=== PATIENT | female | born 1965 | race Caucasian/White ===

== ENCOUNTER 2019-02-10 05:23 | Day surgery (SDC) ==
[2019-02-10] MEDS ORDERED: LEVAQUIN 750 MG/D5W 750 MG/150 ML IVPB IV ONE (06:00)
[2019-02-10] MEDS ORDERED: PEPCID ONE (06:02)
[2019-02-10] MEDS ORDERED: REGLAN ONE (06:02)
[2019-02-10] MEDS ORDERED: LR 1,000 ML ONE ×2 (06:02→10:16)
[2019-02-10] MEDS ORDERED: SENSORCAINE-MPF 0.5%/EPI 1:200,000 ONE (06:17)
[2019-02-10] MEDS ORDERED: XYLOCAINE 1% ONE (06:17)
[2019-02-10] MEDS ORDERED: DIPRIVAN 1% ONE (06:23)
[2019-02-10] MEDS ORDERED: FENTANYL ONE ×2 (06:23→07:40)
[2019-02-10] MEDS ORDERED: XYLOCAINE-MPF 2% ONE (06:24)
[2019-02-10] MEDS ORDERED: ZEMURON ONE (06:26)
[2019-02-10] MEDS ORDERED: VERSED ONE (06:49)
[2019-02-10] MEDS ORDERED: DECADRON ONE (07:26)
[2019-02-10] MEDS ORDERED: EPHEDRINE ONE (07:26)
[2019-02-10] MEDS ORDERED: OFIRMEV 1000 MG/ISOTONIC SOLN 1,000 MG/100 ML BOTTLE ONE (07:26)
[2019-02-10] MEDS ORDERED: ROBINUL ONE (08:14)
[2019-02-10] MEDS ORDERED: SODIUM CHLORIDE 0.9% 10 ML ONE (08:22)
[2019-02-10] MEDS ORDERED: NEO-SYNEPHRINE ONE (08:22)
[2019-02-10] MEDS ORDERED: DILAUDID ONE (10:16)
[2019-02-10] MEDS ORDERED: VENTOLIN HFA INH PRN (10:51)
[2019-02-10] MEDS: MORPHINE IV PRN ×2 (12:39→18:08)
[2019-02-10] MEDS: OSCAL 500 PO SCH ×2 (12:47→17:11)
[2019-02-10] MEDS: ZOFRAN IV PRN (15:48)
[2019-02-10] MEDS: LR 1,000 ML IV SCH ×2 (15:50→21:18)
[2019-02-10] MEDS: TYLENOL PO PRN (17:09)
[2019-02-10 17:36] LABS: AGAP 14; BUN 9 mg/dL (8-22); CHLORIDE 101 mmol/L (98-107); COSMO 275; CREATININE 0.8 mg/dL (0.5-0.9); ESTIMATED GFR > 60; GLUCOSE 152 mg/dL (70-104); MAGNESIUM 1.7 mg/dL (1.5-2.7); SODIUM 137 mmol/L (136-145); TCO2 22 mmol/L (25-35)
[2019-02-10] MEDS: MAG-OX PO SCH (21:19)
--- NOTE | 2019-02-10 23:42 | OPERATIVE NOTE ---
PROCEDURE DATE: 02/10/2019 PREOPERATIVE DIAGNOSES: 1. Left anterior cervical mass. 2. Multinodular goiter. 3. Primary hyperparathyroidism. POSTOPERATIVE DIAGNOSES: 1. Multinodular goiter with compressive symptoms. 2. Primary hyperparathyroidism related to a left inferior parathyroid adenoma. ESTIMATED BLOOD LOSS: 30 mL SPECIMENS: 1. Left lobe of the thyroid. 2. Right lobe of the thyroid. 3. Left inferior parathyroid gland. ANESTHESIA: General. SURGEON: Penny Bergeron MD DETAIL MANAGER: MD Dr. Joe Lucero was present. He facilitated exposure and identification of anatomy distorted by neoplastic processes. INDICATION: This is a 53-year-old female who presented to my clinic with a large anterior cervical mass measuring almost [address] scan. She had compressive symptoms. She was also noted to have primary hyperparathyroidism based off her biochemical workup. She had bilateral nodules in her thyroid gland. OPERATIVE FINDINGS: 1. There was a firm nodular thyroid bilaterally. There was a large mass extending into the superior mediastinum on the left side, anterior to the recurrent laryngeal nerve, with frozen section consistent with parathyroid adenoma. 2. Preoperative PTH was 148 and dropped to 18 post removal of the parathyroid gland. OPERATIVE NOTE: Risks, benefits and alternatives were discussed with the patient. She consented to the procedure, seen preoperatively. The surgical site was confirmed. She was taken to the operating room and placed in supine position. General anesthesia was induced without complication. Her neck was extended and prepped with Betadine including the upper chest and draped in the usual fashion. After time-out, we made a transverse incision 2 fingerbreadths below the level of the sternal notch in a natural skin crease. We carried this down through the platysma and created subplatysmal planes inferiorly and superiorly. We then divided the strap muscle along the midline, protecting the anterior jugular vein. We started on the left side, as this was felt to be the most problematic side, and dissected strap muscles off the thyroid gland. We did this all the way out to the carotid artery. We then carried our dissection superiorly and encircled the superior pole, and divided it with the LigaSure device. We then continued our dissection inferiorly, dividing the middle thyroid vein, protecting the recurrent laryngeal nerve and the esophagus. We dissected out the isthmus superiorly and inferiorly, and then mobilized the left lobe of the thyroid off of the recurrent laryngeal nerve, protecting it. All the while we could identify an inflammatory mass that was quite fibrotic more inferiorly and separate from the thyroid gland. We passed the thyroid gland off to gain better exposure. At this point, we began dissecting the mass out of the mediastinum. This portion was relatively easy, but it was directly on top of the recurrent laryngeal nerve. We were able to preserve this and remove the nodule in its entirety. It was sent for frozen section and found to be parathyroid tissue. Ten to 15 minutes after removal, we sent another rapid PTH and it had dropped to 18, and we felt we had treated her primary hyperparathyroidism. Given the bilateral nodules, we continued our dissection on the contralateral side, mobilizing the strap muscles off of the right lobe of the thyroid. We continued our dissection cephalad, encircling the superior pole, dividing with LigaSure device. Middle vein was divided with the LigaSure device and the inferior pole vessels were dissected out, again identifying the recurrent laryngeal nerve. We divided these and began mobilizing the gland out of its bed with anterior retraction. We left a very small portion of the thyroid gland over the nerve to protect this, but the gland was removed for the most part in its entirety and passed off. We noted hemostasis after Valsalva maneuver bilaterally. Both nerves were intact. We did identify parathyroid glands on the right. We did not see the left superior gland, but felt that this was contained within fibroadipose tissue along the trachea. The majority of our dissection was performed directly on the capsule of the gland to prevent any devascularization of the remaining parathyroids. After noting hemostasis, we placed a Ron drain bilaterally through a separate stab incision. We closed the strap muscles with 3-0 Vicryl. The platysma was closed with 3-0 Vicryl and the skin was closed running 4-0 Monocryl. Dermabond was applied. She was awoken. Her airway was patent, and she was transferred to recovery with no issues. cc: Penny Bergeron MD
[2019-02-11] MEDS: LR 1,000 ML IV SCH ×3 (03:19→14:17)
[2019-02-11] MEDS: MORPHINE IV PRN (03:34)
[2019-02-11] MEDS ORDERED: PRILOSEC PO SCH (07:00)
[2019-02-11] MEDS ORDERED: SYNTHROID PO SCH (07:00)
[2019-02-11 07:45] LABS: AGAP 12; BUN 8 mg/dL (8-22); CALCIUM 8.8 mg/dL (8.8-10.2); CHLORIDE 100 mmol/L (98-107); COSMO 274; CREATININE 0.8 mg/dL (0.5-0.9); ESTIMATED GFR > 60; GLUCOSE 100 mg/dL (70-104); MAGNESIUM 1.9 mg/dL (1.5-2.7); POTASSIUM 3.6 mmol/L (3.5-5.1); SODIUM 138 mmol/L (136-145); TCO2 26 mmol/L (25-35)
[2019-02-11] MEDS: MAG-OX PO SCH (09:04)
[2019-02-11] MEDS: OSCAL 500 PO SCH ×2 (09:04→12:59)
[2019-02-11] MEDS: ZOFRAN IV PRN ×2 (09:15→13:03)
[2019-02-11 11:29] VITALS: BP 113/71
[2019-02-11] MEDS: TYLENOL PO PRN (14:04)
--- NOTE | 2019-02-12 12:57 | DISCHARGE SUMMARY ---
ADMISSION DATE: 02/10/2019 DISCHARGE DATE: 02/11/2019 PREOPERATIVE DIAGNOSES: 1. Multinodular goiter. 2. Primary hyperparathyroidism. POSTOPERATIVE DIAGNOSES: 1. Multinodular goiter. 2. Primary hyperparathyroidism. PROCEDURES PERFORMED: Total thyroidectomy with parathyroidectomy. HISTORY OF PRESENT ILLNESS: This is a 53-year-old female who has had an acute increase in size of an anterior cervical mass. Her workup revealed primary hyperparathyroidism that did not localize and a left inferiorly-based anterior cervical mass extending to the superior mediastinum. HOSPITAL COURSE: Patient was seen on the day of her admission which was 02/10 for above procedure and was cleared by Anesthesia and taken toe operating room and did well. She is admitted postoperatively and her calcium level was checked on the evening of her admission and it was 9. Her voice remained normal with no stridor. Drain output was minimal and she is able to swallow without difficulty. She was started on supplemental calcium 1000 mg t.i.d. as well as Synthroid this morning. On the following morning, calcium remained relatively stable at 8.8. She was feeling well. Drain was removed. She was felt safe for discharge. Her incision was intact with only mild edema along the course of the incision, but no evidence of hematoma. FOLLOWUP INSTRUCTIONS: Follow up appointment with me in a week. DISPOSITION: Home to self-care. DISCHARGE INSTRUCTIONS: Given in detailed written and verbal format. MEDICATIONS: She will continue her home medications. She will take 1000 mg calcium carbonate t.i.d. as well as Synthroid 125 mcg. [place] and Colace as needed. DISCHARGED DIET: GI soft. cc: Penny Bergeron MD
== END 2019-02-11 14:56 | disposition home or self-care (01) ==
LOC: 4N 05:23 → OR 05:23
PROVIDERS: ATTEND Surgery
PROC: GE.THYR (2019-02-10 07:03)

== ENCOUNTER 2019-02-16 22:46 | Inpatient (IN) ==
[2019-02-16] MEDS ORDERED: ZOFRAN IV ONE (23:21)
[2019-02-16] MEDS ORDERED: DILAUDID IV ONE (23:28)
[2019-02-16 23:33] LABS: BASO# 0.07 X1000 (0.0-0.2); BASO% 0.4 % (0.0-0.8); EOS# 0.14 X1000 (0.0-0.7); EOS% 0.7 % (0.0-10.0); HEMATOCRIT 37.3 % (37.0-47.0); IMM GRAN# 0.08 X1000 (0.0-0.04); IMM GRAN% 0.4 % (0.0-0.5); LYMPH# 1.62 X1000 (1.2-3.4); LYMPH% 8.4 % (20.5-51.1); MCH 27.3 PG (27-31); MCHC 32.2 g/dL (33-37); MONO# 1.95 X1000 (0.11-0.59); MONO% 10.1 % (1.7-9.3); MPV 9.5 FL (7.4-10.4); NEUT# 15.53 X1000 (1.4-6.5); PLT 332 X1000 (130-400); RBC 4.39 XMIL (4.2-5.4); RDW 13.2 % (11.5-14.5); WBC 19.39 X1000 (4.8-10.8)
[2019-02-16 23:50] LABS: AGAP 17; ALBUMIN 4.4 g/dL (3.5-5.0); ALKALINE PHOSPHATASE 121 U/L (32-104); BUN 9 mg/dL (8-22); CALCIUM 9.6 mg/dL (8.8-10.2); CHLORIDE 99 mmol/L (98-107); COSMO 269; CREATININE 0.8 mg/dL (0.5-0.9); ESTIMATED GFR > 60; GLUCOSE 162 mg/dL (70-104); GOT 12 U/L (10-30); GPT 13 U/L (10-36); SODIUM 133 mmol/L (136-145); TCO2 17 mmol/L (25-35); TOTAL PROTEIN 7.9 g/dL (6.3-8.3)
[2019-02-16 23:52] LABS: URINE SOURCE CATH
[2019-02-16 23:54] LABS: BILIRUBIN URINE NEGATIVE (NEGATIVE); BLOOD URINE MODERATE (NEGATIVE); COLOR YELLOW; GLUCOSE URINE NEGATIVE (NEGATIVE); KETONE URINE NEGATIVE (NEGATIVE); LEUKOCYTES URINE LARGE (NEGATIVE); NITRITE URINE NEGATIVE (NEGATIVE); PROTEIN URINE TRACE mg/dL (NEGATIVE); SP GRAVITY URINE 1.019; TURBIDITY URINE HAZY (CLEAR); UR EPITHELIAL CELLS <10 /HPF (<10); URINE BACTERIA 4+ /HPF; URINE RBC <10 /HPF (<10); URINE WBC TNTC /HPF (<10); UROBILINOGEN URINE NORMAL (NORMAL)
[2019-02-17] MEDS ORDERED: DILAUDID IV ONE (00:28)
[2019-02-17] MEDS ORDERED: LOVENOX 1 MG/KG SUBQ ONE (00:55)
[2019-02-17] MEDS ORDERED: LOVENOX SUBQ ONE (00:56)
--- NOTE | 2019-02-17 01:09 | PROVIDER DOCUMENTATION ---
This chart was entered by Wendie Moody Scribe, acting as scribe for Jose Euceda MD. HPI-Musculoskeletal Pain/Inj - GENERAL Chief Complaint: Extremity Pain Stated Complaint: LEG PAIN Time Seen by Provider: 02/16/19 22:57 Source: patient - HX OF PRESENT ILLNESS-MUSKULOSKELTAL Nature of Presenting Problem: pt is a 53 yowf c/o sharp LLE pain, n/v for 7 days. diarrhea but has resolved and chills. pt sts she had thyroid and parathyroid removed 02-10 w/dr. shepard and sts LLE pain has occurred since sx. family sts that pt has to use cane to amb but usually doesn't need assistance. pt has taken norcos since sx. pt denies constipation, cp, sob and fever. Quality of Pain: reports: sharp Severity in ED: mild Onset/Duration: 1 week ago Timing: still present Modifying Factors: improves with: nothing Any recent injury?: No (rec sx ) Recently seen or treated by another doctor?: Yes (sx 02-10) - LOWER EXTREMITY PAIN/INJURY Lower Extremities Pain: leg: left Associated Symptoms: reports: weakness in legs/feet (LLE, having trouble ambulating) Review of Systems - Adult - REVIEW OF SYSTEMS - ADULT Constitutional: reports: see HPI, chills. denies: fever, fatique, night sweats Eyes: reports: no symptoms reported Ears, Nose, Mouth & Throat: reports: no symptoms reported Cardiovascular: reports: see HPI, edema (LLE). denies: chest pain, orthopnea, palpitations Respiratory: reports: no symptoms reported. denies: pleurisy, shortness of breath, wheezing Gastrointestinal: reports: see HPI, diarrhea (has resolved), nausea, vomiting. denies: abdominal pain, hematemesis, constipation Genitourinary: reports: no symptoms reported Musculoskeletal: reports: see HPI, bone pain (LLE pain), muscle weakness (LLE). denies: back pain, joint swelling, neck pain Integumentary: reports: no symptoms reported Neurological: reports: no symptoms reported Psychiatric: reports: no symptoms reported Endocrine: reports: no symptoms reported Hematologic/Lymphatic: reports: no symptoms reported Allergic/Immunologic: reports: no symptoms reported All Other Systems: Reviewed and Negative Past History - Adult - PAST MEDICAL HISTORY-ADULT Review of Records: reports: Nursing Assessment Review, Medications Reviewed, Social history reviewed & non-contributory. Major Childhood Illnesses: reports: denies history Cardiovascular: reports: HTN Respiratory: reports: COPD Gastrointestinal: reports: diverticulosis, GERD Obstetrical/Gynecological: reports: denies history Genitourinary: reports: denies history Musculoskeletal: reports: denies history Neurological: reports: denies history Endocrine/Immune: reports: Diabetes, thyroid disorder Other Conditions: reports: denies history - PRIOR SURGERIES/PROCEDURES Surgical/Procedure History: reports: reviewed, not pertinent - IMMUNIZATION STATUS Childhood Immunizations: See Nurse Assessment Flu Vaccine: See Nurse Assessment - FAMILY HISTORY Family History: reviewed, not pertinent - SOCIAL HISTORY Smoking: other (former smoker) Substance Use: none/never Physical Exam-Injury Related - Physical Exam-Injury Related Initial Vital Signs Reviewed: Yes General Appearance: alert, mild distress. negative: cachetic, lethargic, slow to respond Eyes: pink conjunctivae Head, Ears, Nose, Mouth & Throat: normocephalic/atraumatic, moist mucous membranes Neck: non-tender, full range of motion, supple, normal inspection Respiratory: chest non-tender, lungs clear, normal breath sounds Cardiovascular: normal peripheral pulses, regular rate, rhythm, no gallop, no JVD, no murmur. negative: no edema, extra beats, friction rub, irregularly ir regular Chest/Breast: deferred Peripheral Pulses: dorsalis-pedis (R): 2+, dorsalis-pedis (L): 2+ Abdominal Exam: normal bowel sounds, non tender, soft, no organomegaly, no pulsatile mass. negative: distended, rigid, tenderness Female Genitalia/Pelvic Exam: deferred Back Exam: normal inspection Extremity: normal range of motion, normal capillary refill, pelvis stable, calf tenderness (left calf), erythema (LLE), other (LLE EDEMA, good pulses). negative: non-tender, normal gait (using cane to amb per family), normal inspection, no calf tenderness, deformity, inflammation, pulse deficit, slow c apillary refill Integumentary: warm/dry, cyanosis (LLE). negative: normal color, abrasion, ashen, blistered, contusion(s) Neurologic: grossly normal, no motor/sensory deficits Psych/Mental Status: normal mood/affect, normal thought content, normal thought process, oriented x 3 Progress - PLAN OF CARE/RESULTS Progress/Plan/Lab Results: Vital Signs - 8 hr 02/16/19 22:49 Temperature 97.5 F L Pulse Rate 88 Respiratory Rate 18 Blood Pressure 107/75 O2 Sat by Pulse Oximetry 97 Laboratory Results - last 24 hr 02/16/19 02/16/19 02/16/19 23:23 23:23 23:23 WBC 19.39 H RBC 4.39 Hgb 12.0 Hct 37.3 MCV 85.0 MCH 27.3 MCHC 32.2 L RDW Std Deviation 13.2 Plt Count 332 MPV 9.5 Immature Gran % (Auto) 0.4 Neut % (Auto) 80.0 H Lymph % (Auto) 8.4 L [place] % (Auto) 10.1 H Eos % (Auto) 0.7 Baso % (Auto) 0.4 Immature Gran # (Auto) 0.08 H Neut # (Auto) 15.53 H Lymph # (Auto) 1.62 [place] # (Auto) 1.95 H Eos # (Auto) 0.14 Baso # (Auto) 0.07 D-Dimer, Quantitative 12.15 H Sodium 133 L Potassium 4.0 Chloride 99 Carbon Dioxide 17 L Anion Gap 17 BUN 9 Creatinine 0.8 Estimated GFR/1.73 m2 > 60 BUN/Creatinine Ratio 11 Glucose 162 H Calculated Osmolality 269 Calcium 9.6 Total Bilirubin 1.00 AST 12 ALT 13 Alkaline Phosphatase 121 H [id number] Pept Total Protein 7.9 Albumin 4.4 Globulin 4.0 Albumin/Globulin Ratio 1.0 Urine Source Urine Color Urine Turbidity Urine pH Ur Specific [place] Urine Protein Ur Glucose (Stick) Ur Ketones (Stick) Urine Blood Urine Nitrite Urine Bilirubin Urobilinogen Dipstick Urine Leukocytes Urine WBC (Auto) Urine RBC (Auto) U Epithel Cells (Auto) Urine Bacteria (Auto) 02/16/19 02/16/19 23:23 23:47 WBC RBC Hgb Hct MCV MCH MCHC RDW Std Deviation Plt Count MPV Immature Gran % (Auto) Neut % (Auto) Lymph % (Auto) [place] % (Auto) Eos % (Auto) Baso % (Auto) Immature Gran # (Auto) Neut # (Auto) Lymph # (Auto) [place] # (Auto) Eos # (Auto) Baso # (Auto) D-Dimer, Quantitative Sodium Potassium Chloride Carbon Dioxide Anion Gap BUN Creatinine Estimated GFR/1.73 m2 BUN/Creatinine Ratio Glucose Calculated Osmolality Calcium Total Bilirubin AST ALT Alkaline Phosphatase Zcv-H-Scxkfuezjvr Pept 16 Total Protein Albumin Globulin Albumin/Globulin Ratio Urine Source CATH Urine Color YELLOW Urine Turbidity HAZY Urine pH 6.0 Ur Specific [place] 1.019 Urine Protein TRACE A Ur Glucose (Stick) NEGATIVE Ur Ketones (Stick) NEGATIVE Urine Blood MODERATE A Urine Nitrite NEGATIVE Urine Bilirubin NEGATIVE Urobilinogen Dipstick NORMAL Urine Leukocytes LARGE A Urine WBC (Auto) TNTC A Urine RBC (Auto) <10 U Epithel Cells (Auto) <10 Urine Bacteria (Auto) 4+ Orders Category Date Time Status CBC WITH ELECTRONIC DIFF [HEME] Stat Lab 02/16/19 23:23 Completed COMPREHENSIVE METABOLIC PANEL [CHEM] Stat Lab 02/16/19 23:23 Completed D-DIMER [COAG] Stat Lab 02/16/19 23:23 Completed PRO B-NATRIURETIC PEPTIDE Stat Lab 02/16/19 23:23 Completed PTH W CA AND PHOS [CHEM] Stat Lab 02/16/19 23:23 Received UA NIMS W/REFLEX CULT [URINALYSIS] Stat Lab 02/16/19 23:47 Completed Enoxaparin [Lovenox] Med 02/17/19 00:56 Discontinued 80 mg SUBQ NOW ONE Hydromorphone [Dilaudid] Med 02/16/19 23:28 Discontinued 1 mg IV NOW ONE Hydromorphone [Dilaudid] Med 02/17/19 00:28 Discontinued 1 mg IV NOW ONE Ondansetron [Zofran] Med 02/16/19 23:21 Discontinued 4 mg IV NOW ONE Venous U/S Left Leg Stat Ther 02/16/19 23:11 Completed Result Diagrams: 02/16/19 23:23 02/16/19 23:23 - CONSULTS/PCP/HOSPITALIST Notification #1 *Consult/PCP/Hospitalist*: Dr. Mendoza Time Discussed: 00:52 Consult Disposition: other (Dr. Ok talamantes intervention (surgicial), Dr. Aguirre [facility]. to keep pt at [facility] and use heparin to control pain.) #2 Consult: Dr. Das Time Discussed: 01:10 Consult Disposition: Admit (recommended to admit to hospitalist and he will see the pt. Prefers [facility]) #3 Consult: Dr. Mendoza Time Discussed: 01:16 Consult Disposition: Admit Departure - Departure Date of Disposition Decision: 02/17/19 Time of Disposition Decision: 01:17 DIAGNOSIS: Left leg DVT Qualifiers: Affected thrombotic vein of extremity: unspecified vein of extremity Chronicity: acute Qualified Code(s): I82.402 - Acute embolism and thrombosis of unspecified deep veins of left lower extremity Disposition: ADMITTED INPATIENT 09 Certified Medical Emergency: Emergent Condition: Stable Referrals and Follow-Ups: Ryne Jones CRNP [Primary Care Provider] - - Critical Care Note This patient required my direct & personal management of CC.: No Attestation - Physician/ JESSIE Attestation Patient care was provided by Advanced Practice Provider:: No The physician spent face to face time with patient:: Yes Advanced Practice Provider documentation review:: Supervising physician onsite and consulted in the evaluation and care of this patient. The physician did have a face to face encounter with the patient. This chart was documented by the indicated scribe, (Wendie Moody Scribe) and accurately reflects the services I performed and decisions made by me, Jose Euceda MD, as attested by the provider's signature.
[2019-02-17] MEDS ORDERED: CIPRO 400 MG/D5W 400 MG/200 ML IVPB IV ONE (01:32)
[2019-02-17] MEDS ORDERED: LEVAQUIN 500 MG/D5W 500 MG/100 ML IVPB IV SCH (01:45)
[2019-02-17] MEDS: PERCOCET-5 PO PRN (03:03)
[2019-02-17] MEDS ORDERED: DUONEB (A & A) INH PRN (04:59)
[2019-02-17 05:21] LABS: CALCIUM 9.4 mg/dL (8.8-10.2); PHOSPHORUS 4.5 mg/dL (2.7-4.5)
--- NOTE | 2019-02-17 05:56 | HISTORY AND PHYSICAL ---
CHIEF COMPLAINT: Left leg pain and swelling for about 6 days. HISTORY OF PRESENT ILLNESS: Ms. Angy Boone is a 51-year-old female, who has a history of COPD, gastroesophageal reflux disease, and degenerative joint disease. She was recently in the hospital between 02/10/2019 to 02/11/2019. During that hospital stay, she did have a total thyroidectomy as well as parathyroidectomy done by Dr. Lundberg. She now presents to the hospital because of pain and swelling involving the left lower extremity. In addition, she has had difficulty with ambulation. She did present to the [facility] emergency room where she had a venous Doppler study done. She was diagnosed as having deep venous thrombosis, and sent down to [facility] for further management. PAST MEDICAL HISTORY: Hypertension. COPD. Degenerative joint disease. Gastroesophageal reflux disease. History of diverticulosis. Diabetes mellitus. Hypothyroidism. SOCIAL HISTORY: She has quit smoking about a month ago. No alcohol or drug use. PAST SURGICAL HISTORY: She has had a thyroidectomy done on 02/10/2019. She has had 2 sections, and also right breast biopsy. FAMILY HISTORY: Positive for cancer as well as diabetes. MEDICATIONS: 1. Metformin 500 mg p.o. twice a day. 2. Levothyroxine 125 mg p.o. daily. 3. Omeprazole 20 mg p.o. daily. 4. Oxycodone/acetaminophen 5/325 every 6 hours. ALLERGIES: She is allergic to penicillin, Dificid, Keflex, clindamycin as well as Spiriva. 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 Eyes: She uses glasses. Ears, nose, and throat: She does have hearing loss. Cardiovascular: No chest pain. Respiratory: She has cough with shortness of breath. GI: She has nausea, vomiting, diarrhea and abdominal pains. : No dysuria. Musculoskeletal: She has joint pains. Dermatology: No skin lesions. Hematology: No bleeding problems. Endocrine/Allergies: She does have hypothyroidism as well as diabetes. She does have allergy symptoms. Psychiatric: No anxiety or depression. PHYSICAL EXAMINATION: VITAL SIGNS: Temperature 97.6 degrees, pulse 103, respiratory rate 16, blood pressure 127/90, and oxygen saturation 99%. HEENT: She is atraumatic, normocephalic. She is anicteric. Extraocular movements intact. No oral lesions. NECK: No lymphadenopathy or thyromegaly. CARDIOVASCULAR: S1, S2. RESPIRATORY: There is evidence of good air entry bilaterally. ABDOMEN: Soft, nontender. No masses felt. EXTREMITIES: Right lower extremity with no evidence of swelling or edema. Left lower extremity is grossly swollen and edematous as well as evidence of erythema with change. CENTRAL NERVOUS SYSTEM: No obvious focal deficit noted. LABORATORY DATA: WBC is 19.369, hematocrit 37.3 with a platelet count of 332,000. Sodium is 133, potassium is 4, chloride is 99, bicarb is 17, BUN is 9, and creatinine 0.8. Glucose is 162. UA shows large amount of leukocytes with numerous WBCs. ASSESSMENT AND PLAN: 1. DVT left lower extremity. I will start patient on anticoagulation. We will use Lovenox 1 mg/kg subcu at q.12 hours. We will also get a CTA of the chest. 2. Probable urinary tract infection. We will obtain urine and blood cultures. Start patient on empiric antibiotics. 3. Hypothyroidism. Check thyroid function test. Resume levothyroxine. 4. Recent history of parathyroidectomy. Follow calcium level closely. 5. Diabetes mellitus. Maintain patient on sliding scale insulin. Monitor blood sugar levels. Check hemoglobin A1c. 6. Gastroesophageal reflux disease. Continue proton pump inhibitor. 7. COPD nebulized bronchodilators as needed. 8. Degenerative joint disease. Analgesics as needed. cc: Reagan Mendoza MD
[2019-02-17] MEDS: LEVAQUIN 500 MG/D5W 500 MG/100 ML IVPB IV SCH (06:36)
[2019-02-17] MEDS: PRILOSEC PO SCH (06:37)
[2019-02-17] MEDS: SYNTHROID PO SCH (06:37)
[2019-02-17] MEDS: DUONEB (A & A) INH SCH ×3 (08:05→19:51)
[2019-02-17] MEDS: HUMULIN R (PARKWAY) SUBQ SCH ×3 (09:00→22:25)
--- NOTE | 2019-02-17 09:38 | Diag Imaging Result Doc PS360 ---
CT ANGIOGRM PULMONARY ARTERIES - 02/17/2019 INDICATION: r/o pe TECHNIQUE: Axial CT images were obtained after administering intravenous contrast. Coronal MIP images were generated. COMPARISON: None FINDINGS: There is mild patient motion artifact. There is no pulmonary embolism. Heart and great vessels are normal. There is some mild dependent atelectasis bilaterally but no suspicious infiltrates. There is no adenopathy. Upper abdominal images are unremarkable. There are moderate degenerative changes of the spine. No acute or suspicious bony lesion. IMPRESSION: No acute disease. This exam was performed using automated exposure control, adjustment of mA or kV according to patient size, and/or use of iterative reconstruction technique Electronically signed by Edwardo Blackburn 02/17/2019 9:35 AM
[2019-02-17 10:19] LABS: BASO# 0.03 X1000 (0.0-0.2); BASO% 0.2 % (0.0-0.8); EOS# 0.01 X1000 (0.0-0.7); EOS% 0.1 % (0.0-10.0); HEMATOCRIT 38.6 % (37.0-47.0); HEMOGLOBIN 12.4 g/dL (12.0-16.0); IMM GRAN# 0.06 X1000 (0.0-0.04); IMM GRAN% 0.3 % (0.0-0.5); LYMPH# 1.25 X1000 (1.2-3.4); LYMPH% 6.8 % (20.5-51.1); MCH 27.8 PG (27-31); MCHC 32.1 g/dL (33-37); MCV 86.5 FL (81-99); MONO# 1.89 X1000 (0.11-0.59); MONO% 10.3 % (1.7-9.3); MPV 9.9 FL (7.4-10.4); NEUT# 15.17 X1000 (1.4-6.5); NEUT% 82.3 % (42.2-75.2); PLT 301 X1000 (130-400); RBC 4.46 XMIL (4.2-5.4); RDW 13.4 % (11.5-14.5); WBC 18.41 X1000 (4.8-10.8)
[2019-02-17 10:50] LABS: CALCIUM 9.7 mg/dL (8.8-10.2); POTASSIUM 4.3 mmol/L (3.5-5.1)
[2019-02-17 11:17] LABS: INR 1.09; PROTIME 14.3 Seconds (11.0-16.0)
[2019-02-17 11:18] LABS: PTT 46.6 Seconds (22.3-41.8)
[2019-02-17 11:33] LABS: ALB/GLOB RATIO 1.4; CALCIUM 9.8 mg/dL (8.8-10.2); POTASSIUM 4.8 mmol/L (3.5-5.1); TOTAL BILIRUBIN 0.95 mg/dL (0.20-1.00); TOTAL PROTEIN 6.8 g/dL (6.3-8.3)
[2019-02-17 12:24] LABS: CK INDEX 0.7 (0.0-2.5); CK-MB 3.26 ng/mL (0.0-5.0)
[2019-02-17] MEDS: ZOFRAN IV PRN ×4 (12:30→22:25)
[2019-02-17] MEDS: LOVENOX SUBQ SCH (14:01)
--- NOTE | 2019-02-17 17:34 | PROGRESS NOTE ---
DATE: 02/17/2019 SUBJECTIVE: The patient has been complaining of left lower extremity pain, her leg is swollen, she does have a pulse, she is able to move her toes. As per the admitting physician note, she presented to [facility], where she had a venous Doppler study done and she was diagnosed with DVT and she was sent to [facility]. I do not have a final report of that venous study, but we did a CT angiogram that did not show any acute abnormality. She has been placed on Lovenox twice a day. OBJECTIVE: Vital Signs: Temperature 99.2 degrees, pulse 108, respiratory rate 16, blood pressure 110/69, oxygen saturation 100% on room air. HEENT: Head normocephalic, no trauma. PERRLA. Neck: Supple. No JVD. No masses. Central trachea. Chest: Clear to auscultation. No wheezing. No rales. Abdomen: Soft, nontender, nondistended. No hepatosplenomegaly. Extremities: Left lower extremity is swollen, edematous. In the upper part/thigh is a little bit warm, but at the end of the leg it is a little bit cold. As per the patient, she feels a little bit of numbness in that area. I do feel a pulse and she has capillary refill. Neurological: She is alert and oriented x3. LABORATORY: WBC 18.4, hemoglobin 12.4, hematocrit 38.6, platelets 301,000. Sodium 130, potassium 4.8, chloride 91, bicarbonate 21, BUN 11, creatinine 1, glucose 129, calcium 9.8, AST 20, ALT 17, alkaline phosphatase 126. CK 454. Troponin negative x1. ASSESSMENT AND PLAN: 1. Deep venous thrombosis at the level of the left lower extremity. CTA of the chest is negative. She is getting anticoagulation with Lovenox 1 mg/kg twice a day. I will continue to monitor this patient closely. 2. Possible urinary tract infection. I am not sure if this patient is symptomatic or not. Continue with empiric antibiotics. 3. Hypothyroidism. Continue with levothyroxine. 4. Recent history of parathyroidectomy. Aware. 5. Type 2 diabetes. Continue with the same management. She seems to be stable. 6. Chronic obstructive pulmonary disease, not in exacerbation. 7. Deep vein thrombosis prophylaxis with Lovenox. 8. Degenerative joint disease. Continue with analgesic as needed. cc: Gil Randolph MD
[2019-02-18] MEDS: LOVENOX SUBQ SCH ×2 (02:01→13:52)
[2019-02-18] MEDS: ZOFRAN IV PRN ×2 (02:01→06:26)
[2019-02-18] MEDS: DUONEB (A & A) INH SCH ×6 (03:43→23:44)
[2019-02-18] MEDS: LEVAQUIN 500 MG/D5W 500 MG/100 ML IVPB IV SCH (06:26)
[2019-02-18] MEDS: SYNTHROID PO SCH ×3 (06:26→12:41)
[2019-02-18 07:01] LABS: BASO# 0.03 X1000 (0.0-0.2); BASO% 0.2 % (0.0-0.8); EOS# 0.07 X1000 (0.0-0.7); EOS% 0.4 % (0.0-10.0); HEMATOCRIT 39.7 % (37.0-47.0); IMM GRAN# 0.07 X1000 (0.0-0.04); IMM GRAN% 0.4 % (0.0-0.5); LYMPH# 1.91 X1000 (1.2-3.4); LYMPH% 11.2 % (20.5-51.1); MCH 27.7 PG (27-31); MCHC 32.7 g/dL (33-37); MCV 84.6 FL (81-99); MONO# 1.67 X1000 (0.11-0.59); MONO% 9.8 % (1.7-9.3); MPV 10.3 FL (7.4-10.4); NEUT# 13.34 X1000 (1.4-6.5); PLT 336 X1000 (130-400); RBC 4.69 XMIL (4.2-5.4); RDW 13.3 % (11.5-14.5); WBC 17.09 X1000 (4.8-10.8)
[2019-02-18 07:15] LABS: HEMOGLOBIN A1C 5.4 % (4.8-6.0)
[2019-02-18 07:22] LABS: ALB/GLOB RATIO 1.1; ALBUMIN 3.9 g/dL (3.5-5.0); CALCIUM 9.3 mg/dL (8.8-10.2); CREATININE 1.2 mg/dL (0.5-0.9); POTASSIUM 4.3 mmol/L (3.5-5.1); TOTAL BILIRUBIN 1.29 mg/dL (0.20-1.00); TOTAL PROTEIN 7.6 g/dL (6.3-8.3)
[2019-02-18 07:52] LABS: CK INDEX 0.5 (0.0-2.5)
[2019-02-18] MEDS: PRILOSEC PO SCH ×2 (08:00→12:41)
[2019-02-18] MEDS: HUMULIN R (PARKWAY) SUBQ SCH (08:01)
[2019-02-18] MEDS ORDERED: NS 1,000 ML IV SCH (08:30)
[2019-02-18] MEDS ORDERED: SODIUM CHLORIDE 0.9% INJ PRN (09:29)
[2019-02-18] MEDS: PHENERGAN IV PRN ×2 (09:41→16:51)
[2019-02-18] MEDS: NS 1,000 ML IV SCH ×2 (09:47→22:25)
[2019-02-18] MEDS: HUMULIN R SUBQ SCH ×3 (11:44→22:25)
[2019-02-18] MEDS: MIRALAX PO SCH (12:41)
--- NOTE | 2019-02-18 14:21 | PROGRESS NOTE ---
DATE: 02/18/2019 SUBJECTIVE: The patient is lying in bed and she is still complaining of left lower extremity pain. She also has been having nausea and vomiting. She has mild acute kidney injury. I will start this patient on fluids since she has not been able to eat or drink too much. I will continue with Lovenox twice a day for now. She is completely awake, alert, and oriented x3. OBJECTIVE: Vital Signs: Temperature 98.6 degrees, pulse 103, respiratory rate 24, blood pressure 110/79, oxygen saturation 99 on room air. HEENT: Head normocephalic, no trauma. PERRLA. Neck: Supple. No JVD. No masses. Central trachea. Chest: Clear to auscultation. No wheezing. No rales. Abdomen: Soft, nontender, nondistended. No hepatosplenomegaly. Extremities: Left lower extremity is swollen, edematous. Seems to be a little bit swollen compared with yesterday. She has a good capillary refill and is warm, the whole leg. She still feels a little bit of numbness in the left foot. Neurological: The patient is awake, alert, and oriented x3. No focal deficits. LABORATORY: WBC 17, hemoglobin 13, hematocrit 39.7, platelets 336,000. Sodium 130, potassium 4.3, chloride 91, bicarbonate 20, BUN 16, creatinine 1.2, glucose 122, calcium 9.3. CK 553. ASSESSMENT AND PLAN: 1. Deep venous thrombosis at the level of the left lower extremity. CT angiogram of the chest is negative. She is getting anticoagulation with Lovenox 1 mg/kg twice a day. I will continue to monitor this patient closely. 2. Possible urinary tract infection. Even though she is not symptomatic, as per the patient, the urine odor is different, so I will continue with empiric antibiotics. She has a positive culture that showed gram-negative rods. 3. Hypothyroidism. Continue with levothyroxine. 4. Recent history of parathyroidectomy, aware. 5. Type 2 diabetes. Continue with same management. She seems to be stable. 6. Chronic obstructive pulmonary disease, not in exacerbation. 7. Nausea, vomiting, better after placing this patient on Phenergan. 8. Deep vein thrombosis prophylaxis with Lovenox. 9. Degenerative joint disease. Continue with analgesic as needed. 10. Mild acute kidney injury. Continue with IV fluids. 11. Elevated CK. We will continue to monitor. cc: Gil Randolph MD
[2019-02-18] MEDS ORDERED: TYLENOL PO PRN (21:31)
[2019-02-19] MEDS: LOVENOX SUBQ SCH ×2 (02:11→15:00)
[2019-02-19] MEDS: DUONEB (A & A) INH SCH ×2 (03:36→08:21)
[2019-02-19] MEDS: PRILOSEC PO SCH ×2 (05:49→06:40)
[2019-02-19] MEDS: NS 1,000 ML IV SCH ×2 (05:49→11:45)
[2019-02-19] MEDS: LEVAQUIN 500 MG/D5W 500 MG/100 ML IVPB IV SCH (05:49)
[2019-02-19] MEDS: SYNTHROID PO SCH ×2 (05:49→06:40)
[2019-02-19 07:16] LABS: BASO# 0.03 X1000 (0.0-0.2); BASO% 0.3 % (0.0-0.8); EOS# 0.16 X1000 (0.0-0.7); EOS% 1.4 % (0.0-10.0); HEMATOCRIT 35.7 % (37.0-47.0); HEMOGLOBIN 11.5 g/dL (12.0-16.0); IMM GRAN# 0.05 X1000 (0.0-0.04); IMM GRAN% 0.4 % (0.0-0.5); LYMPH# 1.65 X1000 (1.2-3.4); LYMPH% 14.4 % (20.5-51.1); MCH 27.8 PG (27-31); MCHC 32.2 g/dL (33-37); MCV 86.4 FL (81-99); MONO# 1.11 X1000 (0.11-0.59); MONO% 9.7 % (1.7-9.3); MPV 10.5 FL (7.4-10.4); NEUT# 8.43 X1000 (1.4-6.5); NEUT% 73.8 % (42.2-75.2); PLT 298 X1000 (130-400); RBC 4.13 XMIL (4.2-5.4); RDW 13.3 % (11.5-14.5); WBC 11.43 X1000 (4.8-10.8)
[2019-02-19 07:21] LABS: AGAP 13; ALBUMIN 3.3 g/dL (3.5-5.0); ALKALINE PHOSPHATASE 130 U/L (32-104); BUN 13 mg/dL (8-22); CALCIUM 8.2 mg/dL (8.8-10.2); CHLORIDE 98 mmol/L (98-107); COSMO 269; CREATININE 0.9 mg/dL (0.5-0.9); ESTIMATED GFR > 60; GLUCOSE 105 mg/dL (70-104); GOT 28 U/L (10-30); GPT 26 U/L (10-36); POTASSIUM 4.3 mmol/L (3.5-5.1); SODIUM 134 mmol/L (136-145); TCO2 23 mmol/L (25-35); TOTAL BILIRUBIN 0.91 mg/dL (0.20-1.00); TOTAL PROTEIN 6.6 g/dL (6.3-8.3)
[2019-02-19] MEDS: HUMULIN R SUBQ SCH ×4 (07:29→20:53)
[2019-02-19] MEDS: MIRALAX PO SCH (11:43)
[2019-02-19] MEDS: PERCOCET-5 PO PRN ×2 (14:59→20:51)
--- NOTE | 2019-02-19 15:05 | PROGRESS NOTE ---
DATE: 02/19/2019 SUBJECTIVE: Patient is lying in bed. She seems to be feeling a little bit better. Kidney function recovered. White blood cell count trending down. Since this patient is not having urinary symptoms, I will go ahead and stop the antibiotics. OBJECTIVE: Vital Signs: Temperature 98.8 degrees, pulse 94, respiratory rate 20, blood pressure 99/68, oxygen saturation 100% on room air. HEENT: Head normocephalic, no trauma. PERRLA. Neck: Supple. No JVD. No masses. Central trachea. Chest: Clear to auscultation. No wheezing. No rales. Abdomen: Soft, nontender, nondistended. No hepatosplenomegaly. Extremities: Left lower extremity is swollen, edematous. She seems to be a little bit better compared with yesterday. She has a good capillary refill and is warm, the whole leg. Neurological: Awake and oriented x3. No focal deficits. LABORATORY DATA: WBC 11.4, hemoglobin 11.5, hematocrit 35.7, platelets 298,000. Sodium 134, potassium 4.3, chloride 98, bicarbonate 23, BUN 13, creatinine 0.9, glucose 105, calcium 8.2. ASSESSMENT AND PLAN: 1. Deep venous thrombosis at the level of the left lower extremity. CT angiogram of the chest is negative. She has been placed on anticoagulation with Lovenox 1 mg/kg twice a day. Hematology/Oncology Department evaluated this patient and they have recommended to switch to Xarelto 50 mg p.o. twice a day for 21 days and then 20 mg to complete 3 months of treatment. 2. Possible urinary tract infection, asymptomatic. We will stop antibiotics. 3. Hypothyroidism. Continue levothyroxine. 4. Recent history of parathyroidectomy. Aware. 5. Type 2 diabetes. Continue with same management. Stable. 6. Chronic obstructive pulmonary disease, not in exacerbation. 7. Nausea, vomiting. Better. 8. Deep venous thrombosis prophylaxis with Lovenox. 9. Degenerative joint disease. Continue with analgesics as needed. 10. Mild acute kidney injury resolved. 11. Elevated CK. We will monitor. cc: Gil Randolph MD
--- NOTE | 2019-02-19 17:13 | HEMO/ONC CONSULTATION ---
DATE: 02/19/2019 REASON FOR CONSULTATION: Left lower extremity acute DVT. HISTORY OF PRESENT ILLNESS: Ms Boone presented to the emergency department with left lower extremity pain and swelling. They did an ultrasound revealed her to have a DVT. She had previously been in the hospital for a total thyroidectomy as well as a parathyroidectomy on 02/10 to 02/11/2019. They have done a CT angio which is negative for PTE. She is currently on Lovenox 1 mg/kg q.12 hours. We have been consulted to give recommendations for anticoagulation. PAST MEDICAL HISTORY: 1. Hypertension. 2. COPD. 3. Degenerative joint disease. 4. GERD. 5. Diabetes mellitus. 6. Hypothyroidism. PAST SURGICAL HISTORY: Positive for the thyroidectomy, parathyroidectomy done on 02/10/2019. She also previously had 2 C-sections as well as a right breast biopsy. SOCIAL HISTORY: Patient quit smoking about a month ago. She denies any alcohol or drug use. FAMILY HISTORY: Positive for cancer as well as diabetes. REVIEW OF SYSTEMS: Twelve point review of systems has been completed and is negative except for as expressed in HPI. PHYSICAL EXAMINATION: Vital Signs: Temperature 98.8 degrees, heart rate 94, respirations 20, blood pressure 99/68, O2 saturation 100% on room air. General: This is a female lying in her hospital bed. No acute distress. HEENT: Head normocephalic, atraumatic. Pupils equal, round, reactive. Oral mucosa appears to be normal. She has visible postsurgical scars that do not show any signs of infection. Gross auditory acuity is intact. Cardiovascular: S1, S2 heard. Respiratory: Chest is clear. Gastrointestinal: Soft. Musculoskeletal: No obvious bony abnormalities noted. Extremities: Left leg with some swelling. Neurologic: Patient is alert and oriented. LABS AND STUDIES: As per the HPI. ASSESSMENT AND PLAN: 1. Left lower extremity deep vein thrombosis, acute. This is a provoked deep vein thrombosis as she was postsurgical. We would recommend transitioning her to p.o. anticoagulant. We recommend Xarelto but Eliquis can certainly be used. She will need a total of 3 months of anticoagulation therapy. She can then discontinue treatment. She can follow up with her primary care physician upon discharge. 2. Urinary tract infection. She is currently on antibiotics per the Hospitalist service. 3. Hypothyroidism. She will need to continue her levothyroxine. She also need continue follow with Dr. Bergeron and her primary care physician. 4. Diabetes mellitus. Continue sliding scale insulin while in the hospital. We want to thank you for consulting us on Ms. Boone. We will be available as needed while the patient is in the hospital. Otherwise she is going to follow up with her primary care physician for management of her 3 months of anticoagulation. Dictated by NELSON Coppola for Germaine Rogers MD cc: Germaine Rogers MD I have seen and examined the patient and the above note reflects my history, physical exam, assessment and plan. Germaine CARD
[2019-02-19] MEDS: XARELTO PO SCH ×2 (20:57→21:05)
[2019-02-20] MEDS: HUMULIN R SUBQ SCH ×4 (06:31→22:10)
[2019-02-20] MEDS: PRILOSEC PO SCH (06:31)
[2019-02-20] MEDS: SYNTHROID PO SCH (06:31)
[2019-02-20 07:16] LABS: BASO# 0.06 X1000 (0.0-0.2); BASO% 0.5 % (0.0-0.8); EOS# 0.27 X1000 (0.0-0.7); EOS% 2.3 % (0.0-10.0); HEMATOCRIT 33.6 % (37.0-47.0); HEMOGLOBIN 11.1 g/dL (12.0-16.0); IMM GRAN# 0.04 X1000 (0.0-0.04); IMM GRAN% 0.3 % (0.0-0.5); LYMPH# 1.84 X1000 (1.2-3.4); LYMPH% 15.7 % (20.5-51.1); MCH 28.5 PG (27-31); MCV 86.4 FL (81-99); MONO# 0.96 X1000 (0.11-0.59); MONO% 8.2 % (1.7-9.3); MPV 9.9 FL (7.4-10.4); NEUT# 8.53 X1000 (1.4-6.5); PLT 323 X1000 (130-400); RBC 3.89 XMIL (4.2-5.4)
[2019-02-20 07:39] LABS: AGAP 11; ALB/GLOB RATIO 0.9; ALBUMIN 3.1 g/dL (3.5-5.0); ALKALINE PHOSPHATASE 158 U/L (32-104); BUN 9 mg/dL (8-22); CALCIUM 8.1 mg/dL (8.8-10.2); CHLORIDE 99 mmol/L (98-107); COSMO 264; CREATININE 0.8 mg/dL (0.5-0.9); ESTIMATED GFR > 60; GLUCOSE 121 mg/dL (70-104); GOT 42 U/L (10-30); GPT 48 U/L (10-36); SODIUM 132 mmol/L (136-145); TCO2 22 mmol/L (25-35); TOTAL BILIRUBIN 0.66 mg/dL (0.20-1.00); TOTAL PROTEIN 6.4 g/dL (6.3-8.3)
[2019-02-20 08:30] LABS: CK INDEX 0.5 (0.0-2.5); CK-MB 1.38 ng/mL (0.0-5.0)
[2019-02-20] MEDS: XARELTO PO SCH ×2 (08:54→22:10)
[2019-02-20] MEDS: PERCOCET-5 PO PRN (08:54)
[2019-02-20] MEDS: MIRALAX PO SCH (08:54)
--- NOTE | 2019-02-20 11:59 | PROGRESS NOTE ---
DATE: 02/20/2019 SUBJECTIVE: The patient is lying in bed. She feels a bit better. Kidney function is normal, but her LFTs are up today. No bowel movements. OBJECTIVE: Vital Signs: Temperature 98.9 degrees, pulse 89, respiratory rate 16, blood pressure 118/74, oxygen saturation 95% on room air. HEENT: Head normocephalic, no trauma. PERRLA. Neck: Supple. No JVD. No masses. Central trachea. Chest: Clear to auscultation. No wheezing. No rales. Abdomen: Soft, nontender, nondistended. No hepatosplenomegaly. Extremities: Left lower extremity edema and also she has some tenderness to palpation at the level of the leg. Pulses are present. The leg is warm. Neurological: The patient is awake, alert, and oriented x3. No focal deficits. LABORATORY: WBC 11.7, hemoglobin 11.1, hematocrit 33.6, platelets 323,000. Sodium 132, potassium 4, chloride 99, bicarbonate 22, BUN 9, creatinine 0.8, glucose 121, calcium 8.1. AST 42, ALT 48, alkaline phosphatase 158, and CK level is 274, albumin 3.1. ASSESSMENT AND PLAN: 1. DVT at the level of the left lower extremity. CT angiogram of the chest is negative. She has been placed on anticoagulation initially with Lovenox twice a day, but Hematology Oncology Department has recommended to switch this to Xarelto. She is getting 15 mg twice a day for 21 days and then 20 mg to complete 3 months of treatment and then follow up with her primary care doctor. 2. Bacteriuria, asymptomatic. Treatment with antibiotics has been stopped. 3. Hypothyroidism. Continue with levothyroxine. 4. Recent history of parathyroidectomy, aware. 5. Type 2 diabetes. Continue with same management, stable. 6. Chronic obstructive pulmonary disease, not in exacerbation. 7. Elevated liver function tests. This is new. Also her CK level is a little bit high, but getting better. We will monitor for now. 8. Chronic obstructive pulmonary disease, not in exacerbation. 9. Nausea and vomiting, resolved. 10. Deep vein thrombosis prophylaxis with Eliquis. 11. Degenerative joint disease. Continue with analgesics as needed. 12. Acute kidney injury, resolved. This patient is doing much better, but the LFTs were elevated today. We started Eliquis yesterday. We will monitor that. I will request new LFTs tomorrow as well as CK level. I believe she can be discharged in 1 or 2 days if everything is okay. cc: Gil Randolph MD MTDD
--- NOTE | 2019-02-20 14:49 | Extremity Venous Study ---
PROCEDURE NAME: Venous U/S Left Leg - 02/17/2019 REQUESTING PHYSICIAN: Dr. Euceda. CLINICAL APPLICATIONS MANAGER: Yayo. INDICATION: Severe left leg pain. EQUIPMENT: Spinback Vivid E9 ultrasound system a 9 L-D transducer. TECHNIQUE: Images of left lower extremity venous system with comparison shot of the right common femoral vein were obtained in both sagittal and transverse planes. Doppler was used to evaluate veins for spontaneity, phasicity, respiratory excursion, and digital augmentation. FINDINGS: Extensive DVT noted on the left side starting in the common femoral vein and extending all the way down to the gastrocnemius veins. INTERPRETATION: Extensive left lower extremity venous DVT. cc: Kyle Rush MD
[2019-02-20] MEDS: OXY IR PO PRN (17:45)
[2019-02-21] MEDS: HUMULIN R SUBQ SCH ×4 (06:43→20:39)
[2019-02-21] MEDS: SYNTHROID PO SCH (06:43)
[2019-02-21] MEDS: PRILOSEC PO SCH (06:43)
[2019-02-21] MEDS: NS 1,000 ML IV SCH (06:44)
[2019-02-21 07:01] LABS: BASO# 0.06 X1000 (0.0-0.2); BASO% 0.6 % (0.0-0.8); EOS# 0.47 X1000 (0.0-0.7); EOS% 4.4 % (0.0-10.0); HEMATOCRIT 31.4 % (37.0-47.0); HEMOGLOBIN 9.9 g/dL (12.0-16.0); IMM GRAN# 0.05 X1000 (0.0-0.04); IMM GRAN% 0.5 % (0.0-0.5); LYMPH# 1.94 X1000 (1.2-3.4); MCH 27.4 PG (27-31); MCHC 31.5 g/dL (33-37); MONO# 0.92 X1000 (0.11-0.59); MONO% 8.5 % (1.7-9.3); NEUT# 7.36 X1000 (1.4-6.5); PLT 325 X1000 (130-400); RBC 3.61 XMIL (4.2-5.4); RDW 13.1 % (11.5-14.5)
[2019-02-21 07:20] LABS: AGAP 12; ALBUMIN 3.1 g/dL (3.5-5.0); ALKALINE PHOSPHATASE 130 U/L (32-104); BUN 9 mg/dL (8-22); CALCIUM 8.4 mg/dL (8.8-10.2); CHLORIDE 100 mmol/L (98-107); CK PROFILE 155 U/L (24-173); COSMO 270; CREATININE 0.6 mg/dL (0.5-0.9); ESTIMATED GFR > 60; GLUCOSE 95 mg/dL (70-104); GOT 28 U/L (10-30); GPT 42 U/L (10-36); POTASSIUM 4.1 mmol/L (3.5-5.1); SODIUM 136 mmol/L (136-145); TCO2 24 mmol/L (25-35); TOTAL BILIRUBIN 0.42 mg/dL (0.20-1.00); TOTAL PROTEIN 6.2 g/dL (6.3-8.3)
[2019-02-21] MEDS: XARELTO PO SCH ×2 (09:47→20:38)
[2019-02-21] MEDS: OXY IR PO PRN (09:48)
[2019-02-21] MEDS: MIRALAX PO SCH (09:50)
[2019-02-21] MEDS ORDERED: XANAX PO PRN (09:59)
--- NOTE | 2019-02-21 15:04 | PROGRESS NOTE ---
DATE: 02/21/2019 SUBJECTIVE: Patient resting in bed. OBJECTIVE: Vital Signs: Temperature 98.4 degrees, pulse 83, respirations 20, blood pressure 130/74, oxygen saturation 98%. HEENT: Atraumatic, normocephalic. Cardiovascular: S1, S2. Respiratory: Has evidence of good air entry bilaterally. Abdomen: Soft, nontender. No masses felt. Extremities: Edema present in the left lower extremity. Central Nervous System: No obvious focal deficit noted. LABORATORY DATA: WBC 10.8, hematocrit 31.4, with platelet count of 325,000. Sodium is 136, potassium 4.1, chloride 100, bicarb is 24, BUN is 9, creatinine 0.6. ASSESSMENT AND PLAN: 1. Deep venous thrombosis, left lower extremity. Continue anticoagulation. 2. Symptomatic bacteriuria. Antibiotics stopped. 3. Hypothyroidism. Continue levothyroxine. 4. History of parathyroidectomy. Aware. 5. Diabetes mellitus type 2. Monitor blood sugar levels, and maintain the patient on sliding scale insulin. 6. Chronic obstructive pulmonary disease. Stable. 7. Elevated liver function tests. Check hepatitis panel as well as abdominal ultrasound. cc: Reagan Mendoza MD
--- NOTE | 2019-02-21 16:39 | Diag Imaging Result Doc PS360 ---
US ABDOMEN-COMPLETE - 02/21/2019 INDICATION: abn lfts COMPARISON: Chest CT from earlier FINDINGS: The liver, gallbladder, spleen, pancreas, and both kidneys are normal. Common bile duct measures 4 mm. Aorta, IVC, and main portal vein are patent. IMPRESSION: Negative exam. Electronically signed by Edwardo Blackburn 02/21/2019 4:36 PM
[2019-02-22] MEDS: PRILOSEC PO SCH (06:40)
[2019-02-22] MEDS: SYNTHROID PO SCH (06:40)
[2019-02-22] MEDS: NS 1,000 ML IV SCH (06:45)
[2019-02-22] MEDS: HUMULIN R SUBQ SCH ×3 (06:56→15:45)
[2019-02-22] MEDS: MIRALAX PO SCH (09:43)
[2019-02-22] MEDS: XARELTO PO SCH (09:43)
[2019-02-22 15:35] VITALS: BP 104/70
[2019-02-23 13:54] LABS: HEPATITIS PROFILE ACUTE SEE COMMENTS
--- NOTE | 2019-02-23 18:24 | DISCHARGE SUMMARY ---
ADMISSION DATE: 02/17/2019 DISCHARGE DATE: 02/22/2019 ADMISSION DIAGNOSES: 1. Deep vein thrombosis of left lower extremity, started on anticoagulation. 2. Probable urinary tract infection. 3. Hypothyroidism. 4. Recent history of parathyroidectomy. 5. Diabetes mellitus type 2, stable. 6. Gastroesophageal reflux disease. 7. Chronic obstructive pulmonary disease, but no exacerbation. 8. Degenerative joint disease. DISCHARGE DIAGNOSES: 1. Deep vein thrombosis of left lower extremity, stable. 2. Asymptomatic bacteriuria so antibiotics were stopped. 3. Hypothyroidism. 4. History of parathyroidectomy. 5. Diabetes mellitus type 2, stable. 6. Chronic obstructive pulmonary disease, no exacerbation. 7. Elevated elevated liver function tests, which improved. Hepatitis panel nonreactive and abdominal ultrasound was a negative exam. CONSULTATIONS: She had a consultation for Hematology/Oncology to help manage the anticoagulation after discharge, and they recommended Xarelto, but Eliquis could be used as well, and will need 3 months of anticoagulation therapy. SURGERIES AND PROCEDURES: None. HOSPITAL COURSE: Ms. Angy Boone is a 53-year-old female who presented with complaints of left lower extremity swelling for at least 6 days. She was found to have a left lower extremity DVT, was placed in admission for anticoagulation. She had initiated on Lovenox 1 mg/kg subcutaneously every 12 hours. CTA of the chest was performed to rule out pulmonary emboli, and it did not show any pulmonary emboli or acute disease. She had bacteriuria that was asymptomatic. She originally was started on antibiotics, but those were stopped. She also had some mild elevation in her liver function tests, and those improved as well. She was stable. She is discharged home. DISCHARGE VITAL SIGNS: Temperature 98.1 degrees, heart rate 78, respiratory rate 16, blood pressure 104/70, and O2 saturation 100% on room air. DISCHARGE LAB DATA: White blood cells 10,000, hemoglobin 9, hematocrit 31, platelet count 325,000. Sodium 136, potassium 4.1, BUN 9, creatinine 0.6, glucose 102, calcium 8.4, bilirubin 0.42, AST 28, ALT 42, CK 155, albumin 3.1. Hepatitis panel negative. Microbiology, the urine grew out Escherichia coli resistant to ampicillin and Levaquin. It was extended-spectrum beta-lactamase negative, but this patient was asymptomatic. PERTINENT IMAGING: Lower extremity DVT. Extensive DVT noted on the left side starting in the common femoral vein and extending all the way down to the gastrocnemius veins, and pulmonary arteriogram was negative, and abdominal ultrasound was negative. Telemetry strip showed a sinus tachycardia. DISCHARGE MEDICATIONS: 1. Metformin 500 mg p.o. twice daily. 2. Percocet 5 one tablet p.o. every 6 hours p.r.n. 3. Prilosec 20 mg p.o. daily. 4. Levothyroxine 25 mcg p.o. daily. 5. Xarelto 15 mg p.o. twice daily and then on the will drop it down to 20 mg p.o. daily. DISCHARGE DIET: Regular. DISCHARGE ACTIVITY: As tolerated and keep left leg elevated. DISCHARGE INSTRUCTIONS: If your condition changes, contact physician and/or return to emergency department. Changes may include, but not limited to shortness of breath, increased fatigue, excessive bleeding, unexplained weight loss or gain, unmanageable pain, signs or symptoms of infection, fever, notify MD for fever over 101, shortness of breath, chest pain, foul-smelling urine, blood or pus in her urine and difficulty urinating. PHYSICIAN FOLLOWUP: EVAN Nicole; Germaine Rogers MD. DISCHARGE DISPOSITION: Home. Dictated by EVAN Cruz for Christopher Gates MD cc: EVAN Cruz Agree with the above. the following is my own face to face assessment. patient with acute dvt. placed on blood thinners and has done well. still some mild edema of the left leg but stable for discharge home on oral anticoagulation. MTDD
== END 2019-02-22 16:49 | disposition home or self-care (01) ==
LOC: P.ED 22:46 → 4N 02-17 01:49 → SUATTDRO 02-17 01:49
PROVIDERS: ATTEND Internal Medicine

== ENCOUNTER 2019-02-28 10:35 | Inpatient (IN) ==
[2019-02-28] MEDS ORDERED: ZOFRAN IV ONE (11:02)
[2019-02-28] MEDS ORDERED: MORPHINE IV ONE ×2 (11:02→12:32)
[2019-02-28] MEDS ORDERED: PHENERGAN IM ONE (12:01)
[2019-02-28 12:09] LABS: BASO# 0.06 X1000 (0.0-0.2); BASO% 0.6 % (0.0-0.8); EOS# 0.29 X1000 (0.0-0.7); EOS% 2.7 % (0.0-10.0); HEMATOCRIT 33.2 % (37.0-47.0); HEMOGLOBIN 10.4 g/dL (12.0-16.0); LYMPH# 1.47 X1000 (1.2-3.4); LYMPH% 13.8 % (20.5-51.1); MCH 27.7 PG (27-31); MCHC 31.3 g/dL (33-37); MCV 88.5 FL (81-99); MONO# 0.76 X1000 (0.11-0.59); MONO% 7.1 % (1.7-9.3); MPV 9.4 FL (7.4-10.4); NEUT# 8.08 X1000 (1.4-6.5); NEUT% 75.8 % (42.2-75.2); PLT 515 X1000 (130-400); RBC 3.75 XMIL (4.2-5.4); WBC 10.66 X1000 (4.8-10.8)
[2019-02-28 12:17] LABS: AGAP 12; ALB/GLOB RATIO 1.6; ALBUMIN 3.9 g/dL (3.5-5.0); ALKALINE PHOSPHATASE 116 U/L (32-104); BUN 5 mg/dL (8-22); CALCIUM 9.2 mg/dL (8.8-10.2); CHLORIDE 102 mmol/L (98-107); COSMO 272; CREATININE 0.8 mg/dL (0.5-0.9); ESTIMATED GFR > 60; GLUCOSE 89 mg/dL (70-104); GOT 11 U/L (10-30); GPT 15 U/L (10-36); POTASSIUM 4.5 mmol/L (3.5-5.1); SODIUM 138 mmol/L (136-145); TCO2 24 mmol/L (25-35); TOTAL BILIRUBIN 0.48 mg/dL (0.20-1.00); TOTAL PROTEIN 6.4 g/dL (6.3-8.3)
[2019-02-28 12:22] LABS: INR 2.06; PROTIME 23.7 Seconds (11.0-16.0)
[2019-02-28] MEDS ORDERED: MORPHINE ONE (12:31)
--- NOTE | 2019-02-28 13:33 | Diag Imaging Result Doc PS360 ---
EXAM: CT ANGIOGRAM ABD/PELIVS W/CON 02/28/2019 HISTORY: left leg swelling, evaluate for pelvic DVT TECHNIQUE: This exam was performed using automated exposure control, adjustment of mA or kV according to patient size, and/or use of iterative reconstruction technique. COMMENT: 3-D MIPS were performed. There are no previous studies available for comparison. There is no evidence of abdominal aortic aneurysm. The mesenteric and renal arteries are widely patent. There is some fullness of both renal pelves. There is no evidence of bowel obstruction or appendicitis, acute diverticulitis or cholecystitis. There is calcification in the capsule of the spleen which may be due to previous trauma or granulomatous disease. As the study is performed in the arterial phase, detail in the venous structures is somewhat limited, however there does appear to be dilatation of the left external and internal iliac vein with a suggestion of thrombus within the lumen. There is considerable soft tissue swelling in the subcutaneous fat over the left hip and into the thigh. No evidence of arterial occlusion is present. There is a fairly abrupt change in the diameter of the iliac veins at the confluence to form the common iliac. This is close to the passage of the left common iliac artery, suggesting the possibility of a May Thurner syndrome. IMPRESSION: Probable thrombosis of the distal left common iliac, external and internal iliac veins. The findings should be correlated with compression venous ultrasound. No evidence of significant arterial disease. Electronically signed by Mart Marroquin 02/28/2019 1:30 PM
[2019-02-28] MEDS ORDERED: HEPARIN IV ONE (13:55)
[2019-02-28] MEDS ORDERED: HEPARIN 25,000 UNITS/D5W 25,000 UNIT/250 ML IV.SOLN IV SCH (14:00)
--- NOTE | 2019-02-28 14:04 | PROVIDER DOCUMENTATION ---
This chart was entered by Deidre Durbin Scribe, acting as scribe for Cedric Bright MD. HPI-General Adult - General Chief Complaint: Extremity Pain Stated Complaint: LEFT LEG SWELLING Time Seen by Provider: 02/28/19 10:46 Source: patient Allergies/Adverse Reactions: Patient Allergies Allergy/AdvReac Type Severity Reaction Status Date / Time cephalexin [From Keflex] Allergy HIVES Verified 02/28/19 11:21 clindamycin Allergy HIVES Verified 02/28/19 11:21 Penicillins Allergy HIVES Verified 02/28/19 11:21 propoxyphene AdvReac RASH Verified 02/28/19 11:21 [From Darvocet-N 100] tiotropium AdvReac Syncope Verified 02/28/19 11:21 [From Spiriva with HandiHaler] Home Medications: Home Medication List Medication Instructions Recorded Confirmed Last Taken Type Omeprazole [Prilosec] 20 mg PO DAILY@0700 #20 cap 07/08/17 02/28/19 02/28/19 Rx Metformin [Glucophage] 500 mg PO BID 10/05/18 02/28/19 02/28/19 History Levothyroxine [Synthroid] 125 mcg PO DAILY #30 tab 02/11/19 02/28/19 02/28/19 Rx Oxycodone HCl/Acetaminophen 1 ea PO Q6H PRN #30 tab 02/11/19 02/28/19 02/28/19 Rx [Percocet 5-325 mg Tablet] Rivaroxaban [Xarelto] 15 mg PO BID #41 tab 02/19/19 02/28/19 02/28/19 Rx - History of Present Illness -Gen Adult Nature of Presenting Problems: 53 y/o female with history of diabetes and recent stay in [place] due to DVT discharged from the hospital 02/22 or 02/23 presents to the ED with c/o increasing swelling and pain to the LLE. The patient states she was given Xorelto and she has been taking this bid as prescribed. She states she was not given any type of stocking or hose to wear. Location of Pain/Injury: reports: lower extremity (LLE) Quality of Pain: reports: fullness, throbbing, other (itching) Onset/Duration: reports: unsure Timing: reports: still present Modifying Factors: improves with: nothing Associated Symptoms: denies: chest pain, diaphoresis, nausea, shortness of breath, vomiting Similar Symptoms Previously?: Yes Recently seen or treated by another doctor?: Yes (dicharged 02/22 or 02/23 from [place] ) Review of Systems - Adult - REVIEW OF SYSTEMS - ADULT Constitutional: denies: chills, fever, night sweats Eyes: reports: no symptoms reported Ears, Nose, Mouth & Throat: reports: no symptoms reported Cardiovascular: denies: chest pain, palpitations, syncope Respiratory: denies: hemoptysis, shortness of breath, wheezing Gastrointestinal: denies: diarrhea, nausea, vomiting Genitourinary: reports: no symptoms reported Musculoskeletal: reports: other (LLE pain and swelling as well as discoloration) . denies: joint pain, joint swelling Integumentary: reports: no symptoms reported Neurological: reports: no symptoms reported Psychiatric: reports: no symptoms reported Endocrine: reports: no symptoms reported Hematologic/Lymphatic: reports: no symptoms reported Allergic/Immunologic: reports: no symptoms reported All Other Systems: Reviewed and Negative Past History - Adult - PAST MEDICAL HISTORY-ADULT Review of Records: reports: Old Records Reviewed, Nursing Assessment Review, Medications Reviewed Major Childhood Illnesses: reports: denies history Cardiovascular: reports: HTN Respiratory: reports: COPD Gastrointestinal: reports: diverticulosis, GERD Obstetrical/Gynecological: reports: denies history Genitourinary: reports: denies history Musculoskeletal: reports: denies history Neurological: reports: denies history Endocrine/Immune: reports: Diabetes, thyroid disorder Other Conditions: reports: denies history - PRIOR SURGERIES/PROCEDURES Surgical/Procedure History: reports: reviewed, not pertinent - IMMUNIZATION STATUS Childhood Immunizations: See Nurse Assessment Flu Vaccine: See Nurse Assessment - FAMILY HISTORY Family History: reviewed, not pertinent - SOCIAL HISTORY Smoking: other (former smoker) Physical Exam-General - PHYSICAL EXAM-ADULT Initial Vital Signs Reviewed: Yes - CONSTITUTIONAL General Appearance: alert, no apparent distress - HEAD, EARS, NOSE, MOUTH & THROAT HENMT: normocephalic/atraumatic, moist mucous membranes - RESPIRATORY Respiratory: lungs clear, normal breath sounds. negative: crackles, rales, rhonchi - CARDIOVASCULAR Cardiovascular: regular rate, rhythm, no gallop, no murmur, other (LLE edema to the groin) - GASTROINTESTINAL (ABDOMEN) Abdominal Exam: soft, tenderness (generalized from recent Lovenox injections) - MUSCULOSKELETAL Extremity: normal capillary refill, tenderness (LLE to groin), other (pitting edema LLE to the groin). negative: pulse deficit - SKIN Integumentary: warm/dry. negative: diaphoresis, pallor - NEUROLOGIC Neurologic: grossly normal Progress - PLAN OF CARE/RESULTS Progress/Plan/Lab Results: Vital Signs - 8 hr 02/28/19 10:38 Temperature 97.5 F L Pulse Rate 84 Respiratory Rate 22 Blood Pressure 130/81 O2 Sat by Pulse Oximetry 100 Result Diagrams: 02/28/19 11:35 02/28/19 11:35 - REASSESSMENT Reassessment #1 Time Reassessed: 14:01 Status: improving Reassessment Comment: Given IV morphin, IM phenergan and placed on heparin drip - CT/MRI 1 CT Study: Abdomen, Angiogram, Pelvis Impression: Abnormal, See EMR Report ( EXAM: CT ANGIOGRAM ABD/PELIVS W/CON 02/28/2019 HISTORY: left leg swelling, evaluate for pelvic DVT TECHNIQUE: This exam was performed using automated exposure control, adjustment of mA or kV according to patient size, and/or use of iterative reconstruction technique. COMMENT: 3-D MIPS were performed. There are no previous studies available for comparison. There is no evidence of abdominal aortic aneurysm. The mesenteric and renal arteries are widely patent. There is some fullness of both renal pelves. There is no evidence of bowel obstruction or appendicitis, acute diverticulitis or cholecystitis. There is calcification in the capsule of the spleen which may be due to previous trauma or granulomatous disease. As the study is performed in the arterial phase, detail in the venous structures is somewhat limited, however there does appear to be dilatation of the left external and internal iliac vein with a suggestion of thrombus within the lumen. There is considerable soft tissue swelling in the subcutaneous fat over the le ft hip and into the thigh. No evidence of arterial occlusion is present. There is a fairly abrupt change in the diameter of the iliac veins at the confluence to form the common iliac. This is close to the passage of the left common iliac artery, suggesting the possibility of a May Thurner syndrome. IMPRESSION: Probable thrombosis of the distal left common iliac, external and internal iliac veins. The findings should be correlated with compression venous ultrasound. No evidence of significant arterial disease. Electronically signed by Mart Marroquin 02/28/2019 1:30 PM 02/28/19 1330 Interpreting Physician: Mart Marroquin MD Dictated Date/Time: 02/28/19 1325 cc: Cedric Bright MD; Ryne Jones) - CONSULTS/PCP/HOSPITALIST Notification #1 *Consult/PCP/Hospitalist*: Celeste, Hospitalist Time Discussed: 10:53 Reason/Comments: worsening symptoms of DVT on blood thinner Consult Disposition: other (repeat uls and possible medication change or addition of Lovenox) #2 Consult: Celeste, Hospitalist Time Discussed: 13:53 Reason/Comments: abnormal CTA Consult Disposition: other (consult Dr. Aceves in [place]) #3 Consult: Dr. Aceves Time Discussed: 13:53 Reason/Comments: thrombosis left common, internal, and external iliac veins Consult Disposition: Admit (through hospitalist on Heparin drip and consult Dr. Das tomorrow.) Departure - Departure Date of Disposition Decision: 02/28/19 Time of Disposition Decision: 14:02 DIAGNOSIS: Acute deep vein thrombosis (DVT) of iliac vein of left lower extremity, May- Thurner syndrome Disposition: ADMITTED INPATIENT 09 Certified Medical Emergency: Emergent Condition: Fair - Critical Care Note This patient required my direct & personal management of CC.: No Attestation - Physician/ JESSIE Attestation Patient care was provided by Advanced Practice Provider:: No The physician spent face to face time with patient:: Yes Advanced Practice Provider documentation review:: Supervising physician onsite and consulted in the evaluation and care of this patient. The physician did have a face to face encounter with the patient. This chart was documented by the indicated scribe, (Deidre Durbin, Gustavo) and accurately reflects the services I performed and decisions made by me, Cedric Bright MD, as attested by the provider's signature.
[2019-02-28] MEDS ORDERED: HEPARIN IV PRN (14:45)
[2019-02-28] MEDS ORDERED: SODIUM CHLORIDE 0.9% INJ PRN (14:54)
[2019-02-28] MEDS ORDERED: TYLENOL PO PRN (14:54)
[2019-02-28] MEDS ORDERED: PHENERGAN IV PRN (14:54)
[2019-02-28] MEDS ORDERED: ZOFRAN IV PRN (14:54)
[2019-02-28] MEDS ORDERED: HEPARIN 25,000 UNITS/1/2NS 25,000 UNIT/250 ML IV.SOLN IV SCH (15:35)
--- NOTE | 2019-02-28 16:19 | HISTORY AND PHYSICAL ---
PRIMARY CARE PROVIDER: EVAN Nicole. CHIEF COMPLAINT: Left leg pain and swelling. HISTORY OF PRESENT ILLNESS: Ms. Angy Boone is a 53-year-old, female who had a recent partial thyroidectomy and partial parathyroidectomy who then, a few days postoperatively, developed left leg swelling. She presented here with those complaints. Apparently, it had been going on for at least 6 days. Prior to that time, she came here on and was found to have a left lower extremity DVT, and was placed on Lovenox shots. She had Dr. Rogers with hematology consulted. The patient was placed on Xarelto. She is still on her twice a day regimen and today is 5th. On the , it was supposed to decrease to the once a day regimen. However, she states that the swelling since discharge has decreased up until last night and then all of a sudden, it increased to the point that it was causing pain, discoloration of the leg, heat. An abdominal and pelvic CTA was performed that showed probable thrombosis of the distal left common iliac, external and internal iliac veins. They could be correlated with compression venous ultrasound. It was close to the left common iliac artery, suggesting the possibility of a May- Thurner syndrome. Dr. Bright discussed the case with Dr. Aceves, who recommended starting the patient on a heparin drip and consulting Dr. Das in the morning so we will put her in or admit her, start her on a heparin drip, and we will consult Dr. Das in the morning. PAST MEDICAL HISTORY: 1. Denies history of hypertension. 2. COPD. 3. Degenerative joint disease. 4. GERD. 5. History of diverticulosis. 6. Diabetes mellitus type 2. 7. 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 8. Primary hyperparathyroidism related to a left inferior parathyroid adenoma but that adenoma has been removed. 9. Left anterior cervical mass, large mass extending into the superior mediastinum on the left side anterior to the recurrent laryngeal nerve with frozen section consistent with parathyroid adenoma, not cancer. 10. Primary hyperparathyroidism, resolved after mass removed. SURGICAL HISTORY: 1. Partial thyroidectomy and partial parathyroidectomy performed on 02/10/2019. This was performed by Dr. Mj Bergeron. 2. Two sections. 3. Right breast biopsy x2. 4. Hysterectomy. 5. The mass was removed during the parathyroidectomy and thyroidectomy. The mass just happened to be on top of the laryngeal nerve. The whole mass was removed. It was all parathyroid tissue. SOCIAL HISTORY: She quit smoking on 02/10/2019. She started smoking at the age of 19 on and off and it was less than a pack per day. Denies alcohol or illicit drug use. Her boyfriend is at the bedside. She does not work. She has been having to use a walker because of the left leg over the last few days. FAMILY HISTORY: Mother with hypertension, diabetes. Father with GERD, lung cancer, and coronary artery disease with a pacemaker. ALLERGIES: Penicillin, clindamycin, cephalexin, propoxyphene, tiotropium which is Spiriva. She is allergic to Darvocet and Dificid. HOME MEDICATIONS: 1. Metformin 500 mg p.o. twice daily. 2. Percocet 5 one tablet p.o. q.6 hours p.r.n. 3. Prilosec 20 mg p.o. daily. 4. Synthroid 125 mcg p.o. daily. 5. Xarelto 15 mg p.o. twice daily until the and then she is supposed to go with 20 daily. REVIEW OF SYSTEMS: Fourteen point review of systems are complete and all were negative except for those mentioned above in the HPI. PHYSICAL EXAMINATION: VITAL SIGNS: Temperature 98.9 degrees, heart rate 100, respiratory rate 18, blood pressure 130/80, O2 saturation 100% on room air. GENERAL: Ms. Angy Boone is a 53-year-old, female. She is in no acute distress. She is able answer questions appropriately. HEENT: Atraumatic, normocephalic. Pupils equal, round, reactive to light. Extraocular movements intact. Mucous membranes are moist. NECK: Trachea midline. CARDIOVASCULAR: S1, S2. Tachycardic rate and rhythm. No rubs, gallops, murmurs. No lower extremity edema in the right leg but the left leg has 2 to 3+ pitting edema. Negative for JVD or carotid bruits. PULMONARY: Clear to auscultate bilateral breath sounds. No accessory muscle use or work of breathing noted. GI: Soft, nontender, nondistended. Positive bowel sounds x4. EXTREMITIES: Moves all extremities equally. Full range of motion except for the left lower extremity. This extremity is heavy for her. She has difficulty moving it. It is very painful and is very swollen. NEUROLOGIC: A and O x3. Follows commands. Sensory is intact. SKIN: Warm, dry, intact. LABORATORY DATA: White blood cells 10,000, hemoglobin 10, hematocrit 33, platelet count 515,000. INR is 2.06, PTT is 59. Sodium 138, potassium 4.5, BUN 5, creatinine 0.8, glucose 89, calcium 9.2. Bilirubin 0.48, AST 11, ALT 15, albumin 3.9. IMAGING: Abdominal and pelvic CTA, probable thrombosis of the distal left common iliac, external and internal iliac veins, and should be correlated with compression venous ultrasound. It says there is considerable soft tissue swelling in the subcutaneous fat over the left hip and into the thigh. There is no evidence of arterial occlusion present. There is a fairly abrupt change in the diameter of the iliac veins at the confluence to form the common iliac. This is close to the passage of the left common iliac artery, suggesting the possibility of a May- Thurner syndrome. ASSESSMENT AND PLAN: 1. Left common iliac vein thrombosis, close to the artery. Will be started on a heparin drip and Dr. Das will be consulted in the morning. She has been taking Xarelto. We will hold this while she is on the heparin drip. 2. Chronic obstructive pulmonary disease. No exacerbation. 3. Gastroesophageal reflux disease. Continue proton pump inhibitor. 4. Diabetes mellitus type 2. We will do pattern blood glucoses and sliding scale insulin. 5. Hypothyroidism. Continue Synthroid. 6. Deep venous thrombosis prophylaxis. Of course, she will be on a heparin drip because she has a deep venous thrombosis and will put GORDO hose on just to keep the swelling down. 7. Tobacco abuse. She just recently quit in January. Continued cessation discussed. Dictated by EVAN Cruz for Gil Randolph MD cc: EVAN Cruz MD [facility]
[2019-02-28] MEDS: NS 1,000 ML IV SCH (19:35)
--- NOTE | 2019-02-28 21:02 | HISTORY AND PHYSICAL ---
HISTORY OF PRESENT ILLNESS ADDENDUM: The patient seen and examined by me [id number]. All laboratory, vital signs and images were reviewed. This patient was discharged recently due to an extensive DVT at the level of the left leg and apparently she was doing well at home until yesterday when she started having some edema at the level of the left leg again and also pain. So, she decided to come to the emergency department where a CT angiogram was performed and showed a thrombosis of the distal left common iliac, external and internal iliac veins and this is close to the passage of the left common iliac artery, suggesting the possibility of May-Bocanegra syndrome. The patient has been presented to Surgery Department and apparently they will evaluate this patient in the morning, especially Dr. Das. For now, she will be on a heparin drip. We will try to control her pain. She seems to be stable. She is completely alert and oriented x3. I agree with the rest of the nurse practitioner's assessment and plan. cc: Gil Randolph MD
[2019-02-28] MEDS: NORCO-7.5 PO PRN (23:08)
[2019-02-28] MEDS: HUMULIN R SUBQ SCH (23:15)
[2019-03-01] MEDS: NORCO-7.5 PO PRN ×2 (00:27→17:50)
[2019-03-01] MEDS: PRILOSEC PO SCH (06:35)
[2019-03-01] MEDS: SYNTHROID PO SCH (06:35)
[2019-03-01] MEDS: HUMULIN R SUBQ SCH ×4 (06:36→23:49)
[2019-03-01 07:38] LABS: BASO# 0.04 X1000 (0.0-0.2); BASO% 0.5 % (0.0-0.8); EOS# 0.34 X1000 (0.0-0.7); EOS% 4.5 % (0.0-10.0); HEMATOCRIT 30.2 % (37.0-47.0); HEMOGLOBIN 9.2 g/dL (12.0-16.0); IMM GRAN# 0.03 X1000 (0.0-0.04); IMM GRAN% 0.4 % (0.0-0.5); MCHC 30.5 g/dL (33-37); MCV 88.6 FL (81-99); MONO# 0.55 X1000 (0.11-0.59); MONO% 7.3 % (1.7-9.3); MPV 9.1 FL (7.4-10.4); NEUT# 4.45 X1000 (1.4-6.5); NEUT% 59.3 % (42.2-75.2); PLT 471 X1000 (130-400); RBC 3.41 XMIL (4.2-5.4); RDW 13.9 % (11.5-14.5); WBC 7.51 X1000 (4.8-10.8)
[2019-03-01 08:07] LABS: AGAP 12; ALB/GLOB RATIO 1.3; ALBUMIN 3.4 g/dL (3.5-5.0); ALKALINE PHOSPHATASE 103 U/L (32-104); BUN 7 mg/dL (8-22); CALCIUM 8.4 mg/dL (8.8-10.2); CHLORIDE 105 mmol/L (98-107); COSMO 279; CREATININE 0.7 mg/dL (0.5-0.9); ESTIMATED GFR > 60; GLUCOSE 94 mg/dL (70-104); GOT 12 U/L (10-30); GPT 12 U/L (10-36); MAGNESIUM 2.2 mg/dL (1.5-2.7); POTASSIUM 4.2 mmol/L (3.5-5.1); SODIUM 141 mmol/L (136-145); TCO2 24 mmol/L (25-35); TOTAL BILIRUBIN 0.34 mg/dL (0.20-1.00); TOTAL PROTEIN 6.1 g/dL (6.3-8.3)
[2019-03-01] MEDS: NS 1,000 ML IV SCH (08:53)
--- NOTE | 2019-03-01 13:55 | GENERAL SURGERY CONSULTATION ---
DATE: 03/01/2019 CHIEF COMPLAINT: DVT of the left leg. REASON FOR CONSULTATION: I have been asked to see Angy Boone because of the extensive DVT in the left lower extremity. HISTORY OF PRESENT ILLNESS: Her history is such that on the 10 of February she underwent a thyroidectomy/parathyroidectomy by Dr. Bergeron and was discharged home the next day. During the subsequent week she developed left leg swelling. She presented then on 02/16 late in the evening on [facility] to the emergency department. An extremity venous study was ordered for the showing extensive DVT starting in the common femoral vein extending down the gastrocnemius veins. She was hospitalized and in a pulmonary arteriogram ruled out pulmonary thromboembolism and she was started on anticoagulation. She was discharged then on 02/22 to be receiving Xarelto 50 mg twice a day with plans to switch to daily Xarelto on the 12 of March. She was seen by Hematology/oncology while in the hospital. At home she did satisfactorily until the which was yesterday which she noticed increased swelling when being up and going about in the house. For that reason, she has sought once again medical attention and was admitted through the emergency department. A CT scan of the abdomen and pelvis was done. It had primarily arterial contrast imaging showing satisfactory arterial patency. The left common iliac vein was somewhat dilated and this extended down to the external-internal iliac veins suggesting thrombosis in these iliac veins as well. This really was not a CT venogram so we do not have obvious documentation of venous thrombosis even though it is suggested by the enlargement of the iliac veins. Her other medical problems include hypertension, COPD, degenerative joint disease, gastroesophageal reflux, history of diverticulosis, type 2 diabetes. Recent thyroidectomy for multinodular goiter. Recent parathyroidectomy due to an adenoma. The previous surgery includes a thyroidectomy and partial parathyroidectomy by Dr. Bergeron. sections, breast biopsy x2. Hysterectomy. MEDICATIONS AT HOME: Metformin 500 mg twice a day, Percocet 1 q.6 hours p.r.n., Prilosec 20 mg daily, Synthroid 125 mg mcg daily, Xarelto 50 mg twice a day. ALLERGIES: She has multiple allergies which are listed. FAMILY HISTORY: Pertinent for hypertension, diabetes, gastroesophageal reflux disease, coronary artery disease. SOCIAL HISTORY: She smoked until the day of her surgery on her neck and has been smoking for over 30 years. Denies any alcohol or illicit drug use. She does not work. REVIEW OF SYSTEMS: Negative in all 10 subsystems except as noted above. PHYSICAL EXAMINATION: Vital Signs: She is afebrile. Heart rate 67, respiratory rate 20, blood pressure 106/74. HEENT: She is normocephalic. Neck: Supple. Healing collar incision is noted. Respiratory: Bilateral breath sounds are present. Lungs are clear. Heart: Regular rate and rhythm. Abdomen: Soft. Both legs are warm. She has a palpable pedal pulse on the right. It is difficult to palpate on the left due to the swelling. Her leg, however is inspected and warm throughout. There was no really bluish discoloration. IMAGING STUDIES: The venous image that was done yesterday showed flow in her common femoral superficial femoral veins which it did not show even a week ago. ASSESSMENT: Extensive deep venous thrombosis involving the left leg. The common femoral vein distally was involved in a week ago. There was no indication of involvement of the iliac veins at that time. The CT scan now suggests possible involvement common iliac, internal and external iliac veins; no venogram was actually performed. The repeat venous image yesterday does show recanalization already in the common femoral vein and the superficial femoral veins. Due to the length of time from the onset of her thrombosis which probably was the week after her neck surgery, I do not think any surgical thrombectomy of her iliac veins will pay dividends. Additionally, she is already showing evidence of recanalization. So for those reasons. I would simply keep her on anticoagulation and allow her to recanalize whatever she will. After a few months if she continues to have swelling, which she will, then she may need to be re-evaluated with venography or a CT venogram. At that point, there may be benefit to possibly stenting her iliac vein if there continues to show significant obstruction from the clot. The attempt would be simply to help reduce post thrombotic sequelae which she is certainly destined for. So again no operative intervention is recommended at this time. Continued conservative medical therapy with ultimate re-evaluation of her venous system in the future possibly at 3 to 6 months. Thanks for the opportunity to see her. cc: Sha Das MD
[2019-03-01] MEDS ORDERED: HEPARIN 25,000 UNITS/1/2NS 25,000 UNIT/250 ML IV.SOLN IV SCH ×3 (14:01→16:30)
--- NOTE | 2019-03-01 19:47 | PROGRESS NOTE ---
DATE: 03/01/2019 SUBJECTIVE: Today Ms. Boone refers to be hurting. The entire left lower extremity is remarkably swollen. She thinks it is slightly getting better. OBJECTIVE: Vital signs: Blood pressure is 109/60, pulse of 75, respirations 16, temperature is 98 degrees. General: Ms. Boone is a 53-year-old female. She is in bed in no distress. HEENT: Mucosa is pink and moist. Anicteric. Acyanotic. Neck: Supple. Chest: Clear to auscultation. No crepitations. No rhonchi. Cardiovascular: Regular rate and rhythm. Gastrointestinal: Abdomen is soft, nontender. Bowel sounds present. Extremities: Left entire lower extremity all the way from the pelvis region down to the toes are remarkably swollen and tight, is in compression stockings. Distal pulses seem to be present. Central nervous system: Patient is awake, alert, and oriented. LABORATORY DATA: 1. CBC shows mild normocytic anemia. 2. Chemistry is unremarkable. 3. A PTT is 62.0. RADIOLOGIC DATA: CT scan of the abdomen and pelvis show probable thrombosis of the distal left common iliac, external and internal iliac veins. ASSESSMENT: 1. Extensive left lower extremity DVT involving the left common iliac, external and internal iliac veins. Ms. Boone was discharged from here on 02/23/2019 for deep venous thrombosis of the left lower extremity. On that occasion a Doppler ultrasound did show a deep venous thrombosis starting from the common femoral and extending all the way down to the gastrocnemius veins. It looks like it has progressively gotten worse on the current imaging. Ms Boone was sent home on Xarelto. The patient is currently on heparin drip. Vascular has seen her. Plan to continue medical management. 2. History of chronic obstructive pulmonary disease, currently not in exacerbation. 3. Diabetes mellitus. 4. Hypothyroidism. Patient is on Synthroid. 5. Obesity with body mass index of 34.6. 6. Suspected May-Thurner syndrome on imaging. cc: Byron Rahman MD
--- NOTE | 2019-03-01 21:38 | GENERAL SURGERY PROGRESS NOTE ---
DATE: 03/01/2019 The patient was seen early this morning by my partner, Dr. Das. I stopped by to see her as well. In summary, she developed a DVT after parathyroidectomy and total thyroid, and she has developed progressive swelling. She does have extensive DVT. She has been on heparin drip and she has got a compression stocking, although not therapeutic, just the GORDO hose on her left lower extremity. Discussed the natural progression and history of these with her. We will follow along as an outpatient. I agree with Dr. Das that she may ultimately benefit from iliac vein stent, but will monitor for now with compression and anticoagulants. Will follow along as discussed with the patient for quite some time and her family. From a parathyroid/thyroid standpoint, she seems to be doing really well and her incision is healing nicely. Her calcium levels have been okay. cc: Penny Bergeron MD
[2019-03-02] MEDS: PRILOSEC PO SCH ×2 (05:58→06:49)
[2019-03-02] MEDS: SYNTHROID PO SCH ×2 (05:58→06:49)
[2019-03-02] MEDS: NORCO-7.5 PO PRN ×2 (06:43→20:43)
[2019-03-02] MEDS: HUMULIN R SUBQ SCH ×4 (06:49→20:47)
[2019-03-02 07:15] LABS: BASO# 0.05 X1000 (0.0-0.2); BASO% 0.6 % (0.0-0.8); EOS# 0.45 X1000 (0.0-0.7); EOS% 5.2 % (0.0-10.0); HEMATOCRIT 31.3 % (37.0-47.0); HEMOGLOBIN 9.6 g/dL (12.0-16.0); IMM GRAN# 0.03 X1000 (0.0-0.04); IMM GRAN% 0.3 % (0.0-0.5); LYMPH# 1.92 X1000 (1.2-3.4); LYMPH% 22.4 % (20.5-51.1); MCHC 30.7 g/dL (33-37); MCV 88.2 FL (81-99); MONO# 0.73 X1000 (0.11-0.59); MONO% 8.5 % (1.7-9.3); MPV 9.4 FL (7.4-10.4); PLT 487 X1000 (130-400); RBC 3.55 XMIL (4.2-5.4); RDW 13.9 % (11.5-14.5); WBC 8.58 X1000 (4.8-10.8)
[2019-03-02 07:19] LABS: AGAP 13; ALB/GLOB RATIO 1.3; ALBUMIN 3.4 g/dL (3.5-5.0); ALKALINE PHOSPHATASE 96 U/L (32-104); BUN 7 mg/dL (8-22); CALCIUM 8.6 mg/dL (8.8-10.2); CHLORIDE 104 mmol/L (98-107); COSMO 275; CREATININE 0.7 mg/dL (0.5-0.9); ESTIMATED GFR > 60; GLUCOSE 95 mg/dL (70-104); GOT 11 U/L (10-30); GPT 11 U/L (10-36); MAGNESIUM 2.2 mg/dL (1.5-2.7); POTASSIUM 3.8 mmol/L (3.5-5.1); SODIUM 139 mmol/L (136-145); TCO2 22 mmol/L (25-35); TOTAL BILIRUBIN 0.38 mg/dL (0.20-1.00); TOTAL PROTEIN 6.1 g/dL (6.3-8.3)
[2019-03-02] MEDS: HEPARIN 25,000 UNITS/1/2NS 25,000 UNIT/250 ML IV.SOLN IV SCH (07:46)
--- NOTE | 2019-03-02 13:07 | Extremity Venous Study ---
PROCEDURE NAME: Venous U/S Left Leg - 02/28/2019 REQUESTING PHYSICIAN: Dr. Bright MARKETING LIAISON: Rosanne. INDICATIONS: History of extensive DVT with previous comparison from 02/17/2019. EQUIPMENT: fsboWOWid E9 ultrasound system on a 9 L-D transducer. FINDINGS: Images of the left lower extremity venous systems were obtained in both sagittal and transverse planes. Doppler was used to evaluate veins for spontaneity, phasicity, respiratory excursion, and digital augmentation. RESULTS: Extensive DVT noted in the common femoral, proximal mid, distal, superficial femoral, popliteal, posterior tibial and peroneal veins. There is also a superficial venous thrombosis in the saphenofemoral junction and greater saphenous vein. When compared to previous study, there is some recannulization noted in flow in some areas, but overall the DVT appears to be essentially stable. INTERPRETATION: Extensive DVT in the left lower extremity with some recannulization noted in some areas. cc: Kyle Rush MD
--- NOTE | 2019-03-02 19:07 | GENERAL SURGERY PROGRESS NOTE ---
DATE: 03/02/2019 SUBJECTIVE: Feels okay, less pain in her leg. Her mobility is still somewhat limited due to the edema in her leg. No fevers. No tachycardia. Oxygen saturation 100% on room air. OBJECTIVE: General: She is alert. Cardiovascular: Normal rate. Pulmonary: She is on room air. Extremities: Her left leg is swollen. The foot is perfused. There is no significant erythema of the leg. LABORATORIES: White count is 8, hematocrit 31, creatinine is 0.7. Her calcium is at 8.6. ASSESSMENT AND PLAN: This is a 53-year-old female with deep vein thrombosis, possible May-Thurner syndrome component to this is following total thyroid and parathyroidectomy. We will work on her mobility today. She is on heparin drip. We can transition to oral anticoagulants at any point, but right now it is just more physical therapy and immobility that requires her admission. Hopefully home in the next 24 to 48 hours. cc: Penny Bergeron MD
--- NOTE | 2019-03-02 20:49 | PROGRESS NOTE ---
DATE: 03/02/2019 SUBJECTIVE: Today Ms. Boone refers to be doing fair. Still has some pains in the left lower extremity. OBJECTIVE: Vital signs: Blood pressure is 115/59, pulse of 79, respirations 18, temperature 98.3. General: Ms. Boone is a 53-year-old female. She is in bed, in no distress. HEENT: Mucosa is pink and moist. Anicteric. Acyanotic. Neck: Supple. Chest: Clear to auscultation. No crepitations. No rhonchi. Cardiovascular: Regular rate and rhythm. GI: Abdomen is soft, nontender. Bowel sounds present. Extremities: Left lower extremity continues to be entirely swollen but with good mobility. 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 LABORATORY DATA: CBC is unremarkable. Chemistry is also unremarkable. Her aPTT was 98.6 this morning. ASSESSMENT: 1. Extensive left lower extremity deep venous thromboses involving the left common iliac, external and internal iliac veins. The patient is currently on IV heparin drip. Vascular is on board.. Of note, Ms. Boone was discharged recently on Xarelto, and this has she seems to have failed. We will get Hematology-Oncology to evaluate her again. 2. History of chronic obstructive pulmonary disease, currently not in exacerbation. 3. Diabetes mellitus. Will continue with insulin regimen. 4. Hypothyroidism. Patient is on Synthroid. 5. Suspected May-Thurner syndrome on imaging. cc: Byron Rahman MD MTDD
[2019-03-03] MEDS: HEPARIN 25,000 UNITS/1/2NS 25,000 UNIT/250 ML IV.SOLN IV SCH (04:12)
[2019-03-03] MEDS: SYNTHROID PO SCH (06:53)
[2019-03-03] MEDS: HUMULIN R SUBQ SCH ×2 (06:54→11:03)
[2019-03-03] MEDS: PRILOSEC PO SCH (06:54)
[2019-03-03 06:55] LABS: BASO# 0.03 X1000 (0.0-0.2); BASO% 0.3 % (0.0-0.8); EOS# 0.38 X1000 (0.0-0.7); EOS% 4.3 % (0.0-10.0); HEMATOCRIT 32.4 % (37.0-47.0); HEMOGLOBIN 9.8 g/dL (12.0-16.0); IMM GRAN# 0.03 X1000 (0.0-0.04); IMM GRAN% 0.3 % (0.0-0.5); LYMPH# 1.29 X1000 (1.2-3.4); LYMPH% 14.6 % (20.5-51.1); MCH 26.7 PG (27-31); MCHC 30.2 g/dL (33-37); MCV 88.3 FL (81-99); MONO# 0.51 X1000 (0.11-0.59); MONO% 5.8 % (1.7-9.3); MPV 9.2 FL (7.4-10.4); NEUT# 6.59 X1000 (1.4-6.5); NEUT% 74.7 % (42.2-75.2); PLT 451 X1000 (130-400); RBC 3.67 XMIL (4.2-5.4); RDW 13.7 % (11.5-14.5); WBC 8.83 X1000 (4.8-10.8)
[2019-03-03 07:38] LABS: AGAP 13; ALB/GLOB RATIO 1.2; ALBUMIN 3.5 g/dL (3.5-5.0); ALKALINE PHOSPHATASE 98 U/L (32-104); BUN 7 mg/dL (8-22); CALCIUM 8.9 mg/dL (8.8-10.2); CHLORIDE 98 mmol/L (98-107); COSMO 266; CREATININE 0.8 mg/dL (0.5-0.9); ESTIMATED GFR > 60; GLUCOSE 134 mg/dL (70-104); GOT 14 U/L (10-30); GPT 11 U/L (10-36); MAGNESIUM 2.1 mg/dL (1.5-2.7); POTASSIUM 3.7 mmol/L (3.5-5.1); SODIUM 133 mmol/L (136-145); TCO2 22 mmol/L (25-35); TOTAL BILIRUBIN 0.47 mg/dL (0.20-1.00); TOTAL PROTEIN 6.5 g/dL (6.3-8.3)
[2019-03-03 08:56] VITALS: BP 108/75
[2019-03-03] MEDS ORDERED: LOVENOX 1 MG/KG SUBQ SCH (09:00)
[2019-03-03] MEDS ORDERED: LOVENOX SUBQ SCH (09:00)
--- NOTE | 2019-03-04 13:16 | DISCHARGE SUMMARY ---
ADMISSION DATE: 02/28/2019 DISCHARGE DATE: 03/03/2019 DISPOSITION: Home. FOLLOW-UP: EVAN Nicole. Dr. Das. Dr. Dooley. CONSULTATION DURING THIS ADMISSION: Surgery was consulted. Patient was seen by Dr. Das, followed up by Dr. Bergeron. Hematology/Oncology was consulted. Patient was seen by Dr. Dooley. INVASIVE PROCEDURES DONE DURING THIS ADMISSION: None. IMAGING STUDIES OF SIGNIFICANCE: DVT of the lower extremity showed an extensive DVT in the left lower extremity with some recanalization noted in some areas. A CTA of the abdomen showed probable thrombosis of the distal left common iliac, external and internal iliac veins. ADMISSION DIAGNOSIS: 1. Left common iliac vein thrombosis. 2. Chronic obstructive pulmonary disease. 3. GERD. 4. Diabetes mellitus. 5. Hypothyroidism. DIAGNOSIS AT THE TIME OF DISCHARGE: 1. Extensive left lower extremity DVT involving the left common iliac, external and internal iliac veins. 2. COPD. 3. Diabetes mellitus. 4. Hypothyroidism. 5. Suspected May-Thurner syndrome on imaging. DISCHARGE MEDICATIONS: 1. Omeprazole 20 mg p.o. daily. 2. Metformin 500 b.i.d. 3. Levothyroxine 125 mcg p.o. daily. 4. Oxycodone. 5. Lovenox 90 mg subcutaneously q. 12. PRESENTING COMPLAINT: Leg swelling. HISTORY OF PRESENTING COMPLAINT: Ms. Boone is a 53-year-old female who underwent a partial thyroidectomy and partial parathyroidectomy 02/10/2019. Subsequently, she developed a left lower extremity DVT, was evaluated and discharged on Xarelto. Unfortunately, at home, Ms. Boone' leg continued to swell up, so she came to the emergency room where she was evaluated and was found to have extension of the DVT into the common iliacs there and the external and internal iliac veins. Ms. Boone was subsequently admitted for further medical care. HOSPITAL COURSE: Ms. Boone was admitted to the surgical floor. She was initially started on IV heparin. Surgery was consulted and hematology/oncology was also consulted. During the hospital course, ultrasound was done, which seems to suggest that there was some recanalization, so surgery recommended to continue medical management. Heme-Onc recommended that the patient could be switched to Lovenox after about 3 days on the heparin. This was successfully done today and Ms. Boone has been taught how to give herself the therapeutic dose of Lovenox. She has also been able to move with physical therapy today. We think she is fairly stable to be discharged. Heme-Onc has given recommendation to keep her on Lovenox for 6 weeks and then at a later date they will be able to transition this to Eliquis. All these discharge instructions have been discussed with Ms. Boone. Her was at the bedside at the time of the encounter. Both of them voiced understanding. Ms. Boone is supposed to follow up with the subspecialties that have been involved with her care during the hospital course. All the discharge instruction discussed. TIME SPENT: The time spent for discharge is 35 minutes. cc: MD Ryne Durant CRNP Dr. Walker Sammy Becdach, MD
--- NOTE | 2019-03-04 19:57 | HEMO/ONC CONSULTATION ---
DATE: 03/02/2019 ADMITTING PHYSICIAN: Dr. Gil Estrada. REQUESTING PHYSICIAN: Dr. Gil Estrada. We appreciate this consult. CHIEF COMPLAINT: Left lower extremity DVT. HISTORY OF PRESENT ILLNESS: Ms. Angy Boone is a pleasant 53-year-old female with a history of COPD, degenerative joint disease, gastroesophageal reflux disease, diabetes mellitus type 2, hypothyroidism. The patient reports that after a partial thyroidectomy and partial parathyroidectomy, she began to experience left lower extremity swelling. She presented to [facility] Emergency Department secondary to those complaints. The patient underwent extremity venous study which revealed extensive DVT in the left lower extremity with some recannulization noted in some areas. The patient was admitted with extensive DVT. We are consulted for advice on anticoagulation. PAST SURGICAL HISTORY: As in HPI. PAST SURGICAL HISTORY: 1. Partial thyroidectomy and partial parathyroidectomy on 02/10/[address] Mj Bergeron. 2. section x2. 3. Right breast biopsy x2. 4. Hysterectomy. SOCIAL HISTORY: The patient quit smoking on 02/10/2019. She smoked since the age of 19, less than 1 pack daily. She does not use alcohol or illicit drugs. FAMILY HISTORY: Significant for lung cancer in the patient's father. MEDICATIONS ON ADMISSION: 1. Metformin. 2. Percocet. 3. Prilosec. 4. Synthroid. 5. Xarelto 15 mg b.i.d. until the 17th, with a switch to 20 mg daily thereafter. ALLERGIES: Penicillin, clindamycin, cephalexin, propoxyphene, tiotropium, Darvocet, and Dificid. REVIEW OF SYSTEMS: A 14 point review of systems was obtained and negative except for mentioned in HPI. PHYSICAL EXAMINATION: General: Ms. Angy Boone is a 53-year-old female lying supine in bed in no immediate distress. Vital Signs: Temperature 97.9 degrees, blood pressure 108/75, heart rate 71, respirations 18, O2 saturation 98% on room air. HEENT: Normocephalic, atraumatic. Mucous membranes are pale and moist. Sclerae are anicteric. Extraocular movements intact. Neck: Supple. Lungs: Clear to auscultation bilaterally. Chest expansion is equal bilaterally. CV: S1, S2 are heard without murmur, rub or gallop. Abdomen: Nondistended. Extremities: The patient has 2+ left lower extremity edema. She is wearing bilateral compression stockings to the groin. Neurologic: The patient is awake, alert, oriented x3. There is no focal motor deficit. LABORATORY DATA: Hemoglobin 9.8, hematocrit 32.4, white blood cell count is 8.83, platelets 451,000. Sodium 133, potassium 3.7, chloride 98, CO2 is 22, BUN 7, creatinine 0.8, glucose 134, magnesium 2.1. IMAGING STUDIES: Extremity venous study reveals extensive DVT in the left lower extremity with some recannulization noted in some areas. Abdomen and pelvis CTA reveals probable thrombosis of the distal left common iliac, external and internal iliac veins. There is no evidence of significant arterial disease. ASSESSMENT AND PLAN: 1. Left lower extremity deep venous thrombosis, which is extensive. The patient is currently on a heparin drip. She will be switched to Lovenox 1.5 mg/kg b.i.d., and we will schedule followup in clinic in 2 weeks and monitor closely. 2. Questionable May-Thurner syndrome as per problem #1. We will continue to monitor closely. 3. Chronic obstructive pulmonary disease without exacerbation at this time. 4. Diabetes mellitus type 2, stable. Blood glucose today 134. 5. We will follow along with you and make further recommendations pending outcomes. Again, this is Yoselyn Aguero, nurse practitioner, dictating a consult on Angy Boone for Dr. Blake Dooley. The above reflects the history, exam, assessment and plan of Dr. Dooley. Dictated by EVAN Mills for Blake Dooley MD cc: EVAN Mills MD
== END 2019-03-03 12:31 | disposition home or self-care (01) | DRG 300 ==
LOC: ED 10:35 → EDIPHOLD 15:04 → SUATTDRO 15:04 → 4N 17:50
PROVIDERS: ATTEND Internal Medicine